=== PATIENT | female | born 1950 | race Caucasian/White ===

== ENCOUNTER 2025-02-04 22:26 | Outpatient (CLI) | payer MEDICARE, SELFPAY | END 2025-02-04 22:27 | disposition home or self-care (01) | LOC: AMB 02-07 10:15 | PROVIDERS: Visit Provider Family Medicine | DX: S79.911A Unspecified injury of right hip, initial encounter (principal); W19.XXXA Unspecified fall, initial encounter; Y92.009 Unspecified place in unspecified non-institutional (private) residence as the place of occurrence of the external cause | CPT/HCPCS: A0425; A0433 ==

== ENCOUNTER 2025-02-04 23:21 | Inpatient (IN) | payer MEDICARE, SELFPAY ==
--- NOTE | 2025-02-04 | CRLHL7_ITS ---
For Patients: As a result of the Cures Act, medical imaging exams and procedure reports are released immediately into your electronic medical record. You may view this report before your referring provider. If you have questions, please contact your health care provider. INDICATION: Cough, chest pain. TECHNIQUE: Chest 1 view. COMPARISON: None. FINDINGS: Cardiovascular and mediastinum: Cardiomediastinal silhouette is within normal limits. Lungs and pleural spaces: Hyperinflated lungs, likely reflecting COPD. No consolidation. No pleural effusions or pneumothorax. Bones and soft tissues: Old right 9th rib fracture. IMPRESSION: No evidence of acute pulmonary process. Dictated by Gino To MD @ 02/05/2025 12:17:49 AM (Electronically Signed)
[2025-02-04 23:26] VITALS: BP 112/73; PULSE 94; RESP 16; TEMP 36.6; O2SAT 92; BMI 22.0
--- NOTE | 2025-02-04 23:31 | CRLHL7_ITS ---
For Patients: As a result of the Cures Act, medical imaging exams and procedure reports are released immediately into your electronic medical record. You may view this report before your referring provider. If you have questions, please contact your health care provider. INDICATION: Fall, right hip pain. TECHNIQUE: Pelvis and right hip 3 views. COMPARISON: None. FINDINGS: Comminuted displaced and angulated fracture of the right femoral intertrochanteric region. No dislocation. Mild degenerative changes of the bilateral hips. Right hip soft tissue swelling. IMPRESSION: Comminuted displaced angulated right femoral intertrochanteric fracture. Dictated by Gino To MD @ 02/05/2025 12:19:12 AM (Electronically Signed)
[2025-02-05] VITALS (21 sets, daily range): BP systolic 101–154; BP diastolic 60–81; PULSE 94–103; RESP 14–41; TEMP 36.4–37.2; O2SAT 75–97; BMI 24.6
--- NOTE | 2025-02-05 00:05 | ED_ITS ---
HPI - General Adult General Chief complaint: Hip Injury/Pain Stated complaint: R hip pain Time Seen by Provider: 02/05/25 00:01 History of Present Illness HPI narrative: per ems - fall from standing around 2114, unknown how she fell. found her on the ground with c/o R hip pain . denies LOC or head injury, does state she is intoxicated. ems iv 20g R FA, gave 150 fentanyl and an ice pack. 75-year-old woman presenting to the emergency department via EMS with right hip pain. Apparently had a fall around 3 hours prior to my interview with her. The circumstances of the fall are initially unclear but she believes she tripped over her big dog. She says a big dog in a tiny apartment. And she admits that alcohol would have played a role as well. Did not hit her head. No neck or back pain. Does not believe she passed out. No abdominal pain. No new shortness of breath. I do inquire about her drinking. It would appear that this has become more of a problem. There are some days she does not drink. She has had shakes in the past. Past medical includes osteoporosis, psoriasis, sub corneal dermatitis, COPD, tobacco dependence, alcohol abuse Surgical history includes , tubal ligation and subsequent reversal and salpingectomy, orif on right ankle Medications include calcium plus D, desonide cream, dupilumab, lorazepam, tiotropium-olodaterol Related Data Home Medications ?Medication ?Instructions ?Recorded ?Confirmed No Known Home Medications 02/05/2501/24 Allergies Allergy/AdvReac Type Severity Reaction Status Date / Time ragweed pollen Allergy Intermediate Rash, Verified 02/05/25 00:45 Dyspnea azithromycin Allergy Mild Intolerance Verified 02/05/25 00:45 ciprofloxacin Allergy Mild Shortness Verified 02/05/25 00:45 of Breath latex Allergy Mild Rash Verified 02/05/25 00:45 Sulfa (Sulfonamide Allergy Mild Shortness Verified 02/05/25 00:45 Antibiotics) of Breath Fish Containing Products AdvReac Mild Nausea/Vomi Verified 02/05/25 00:45 ting pistachio nut AdvReac Mild GI Upset Verified 02/05/25 00:45 shellfish derived AdvReac Mild GI Upset Verified 02/05/25 00:45 Review of Systems Status of ROS: Reports: 6 or more systems reviewed and unremarkable except as noted in History and below [facility] Medical History Pulmonary emphysema ?J43.9 - Emphysema, unspecified (ICD-10) Cellulitis of skin ?L03.90 - Cellulitis, unspecified (ICD-10) Smoker ?F17.200 - Nicotine dependence, unspecified, uncomplicated (ICD-10) 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 - Subcorneal pustular dermatitis (ICD-10) Psoriasis ?L40.9 - Psoriasis, unspecified (ICD-10) Osteoporosis ?M81.0 - Age-related osteoporosis without current pathological fracture (ICD- 10) Surgical History History of tubal ligation ?Z98.51 - Tubal ligation status (ICD-10) Status post ORIF of fracture of ankle ?Z98.890 - Other specified postprocedural states (ICD-10) ?Z87.81 - Personal history of (healed) traumatic fracture (ICD-10) History of section ?Z98.891 - History of uterine scar from previous surgery (ICD-10) Social History Smoking Status: Former smoker How often do you have a drink containing alcohol: 4 or more times a week How many standard drinks containing alcohol do you have on a typical day: 5 or 6 How often do you have six or more drinks on one occasion: Weekly AUDIT-C Alcohol total score: 9 Non-prescribed substance use: denies use Exam Narrative: Exam Narrative: Pleasant. Upset. Eyes are little injected. Pupils are 3 mm and equal and appropriately reactive. She is not slurring her words. Does appear a little intoxicated however. Head is atraumatic. Neck is supple nontender. Back nontender. She is breathing easily. Heart in elevated rate but regular rhythm. Extremities well perfused without edema. Exquisite tenderness about the right hip limiting any movement. Abdominal pain to palpation. Const: Vital Signs, click to edit/add: Vital Signs - 24 hr 02/04/25 23:26 02/05/25 00:11 02/05/25 01:07 Temperature 97.8 F Pulse Rate [Pulse Oximeter] 94 Respiratory Rate 16 Blood Pressure [Ri ght Upper Arm] 112/73 Pulse Oximetry 92 93 75 L Oxygen Delivery Me thod Room Air Room Air Oxygen Flow Rate 02/05/25 01:07 02/05/25 01:08 Temperature Pulse Rate [Pulse Oximeter] Respiratory Rate Blood Pressure [Ri ght Upper Arm] Pulse Oximetry 97 90 Oxygen Delivery Me thod Nasal Cannula Nasal Cannula Oxygen Flow Rate 2 Documenting provider has reviewed patient's vital signs: yes Course Vital Signs Vital signs: Initial Vital Signs Temperature 97.8 F 02/04/25 23:26 Temperature Source Temporal Artery Scan 02/04/25 23:26 Pulse Rate 94 02/04/25 23:26 Respiratory Rate 16 02/04/25 23:26 Blood Pressure 112/73 02/04/25 23:26 Blood Pressure Mean 86 02/04/25 23:26 Blood Pressure Position Sitting 02/04/25 23:26 Pulse Oximetry 92 02/04/25 23:26 Oxygen Delivery Method Room Air 02/04/25 23:26 Vital Signs Temperature 97.8 F 02/04/25 23:26 Pulse Rate 94 02/04/25 23:26 Respiratory Rate 16 02/04/25 23:26 Blood Pressure 112/73 02/04/25 23:26 Pulse Oximetry 92 02/04/25 23:26 Oxygen Delivery Method Room Air 02/04/25 23:26 Temperature 97.8 F 02/04/25 23:26 Pulse Rate 94 02/04/25 23:26 Respiratory Rate 16 02/04/25 23:26 Blood Pressure 112/73 02/04/25 23:26 Pulse Oximetry 90 02/05/25 01:08 Oxygen Delivery Method Nasal Cannula 02/05/25 01:08 Oxygen Flow Rate 2 02/05/25 01:07 Medications Administered Medications: Generic Name Dose Route Start Last Admin Trade Name Freq PRN Reason Stop Dose Admin Hydromorphone HCl 0.5 mg 02/05/25 00:29 02/05/25 00:38 Hydromorphone 0.5 Mg/0.5 Ml Inj IVP 02/05/25 00:30 0.5 mg ONCE ONE Administration Sodium Chloride 500 mls @ 500 mls/hr 02/05/25 00:29 02/05/25 00:38 0.9 % Sodium Chloride 500 Ml IV 02/05/25 01:28 500 mls/hr .Q1H ONE Administration Medical Decision Making MDM Narrative Medical decision making narrative: Suspicion for hip fracture. She did receive fentanyl by EMS. I have ordered for 0.5 mg of Dilaudid yet as she is still in pain. Three-view of right hip/pelvis independently reviewed by me shows an intertrochanteric comminuted fracture of the right hip. Some displacement. One-view chest x-ray looks hyperinflated. Alcohol level does return at 0.27. I do call to Orthopedics and they would anticipate surgery in the morning pending clearing of alcohol. Subsequently spoke to our covering hospitalist who is accepting for admission. Giving another dose of Dilaudid. Medical Records Medical records reviewed: Yes I reviewed the patient's medical records Lab Data Lab results reviewed: Yes I reviewed the patient's lab results Labs: Lab Results 02/04/25 Range/Units 00:03 WBC 6.66 (4.50-11.00) K/uL RBC 4.61 (4.00-5.20) m/uL Hgb 14.3 (12.0-16.0) gm/dL Hct 43.1 (33.0-51.0) % MCV 94 (80-100) fL MCH 31 (26-34) pg MCHC 33 (32-36) gm/dL RDW Coeff of Lisa 13.9 (11.5-15.5) % Plt Count 285 (140-440) K/uL Neut % (Auto) 70.5 (42.0-72.0) % Lymph % (Auto) 20.0 (20-44) % [place] % (Auto) 7.5 (0.0-11.0) % Eos % (Auto) 0.6 (0.0-7.0) % Baso % (Auto) 0.8 (0.0-3.0) % Neut # (Auto) 4.70 (1.7-7.0) K/uL Lymph # (Auto) 1.33 (0.90-2.90) K/uL [place] # (Auto) 0.50 (0.00-0.90) K/UL Eos # (Auto) 0.04 (0.00-0.50) K/uL Baso # (Auto) 0.05 (0.00-0.30) K/uL Abs Immat Gran (auto) 0.04 (0.00-0.30) K/uL Imm/Tot Granulo (auto) 0.6 % Sodium 135 (135-149) mmol/L Potassium 4.3 (3.6-5.1) mmol/L Chloride 98 (96-114) mmol/L Carbon Dioxide 27 (20-32) mmol/L Anion Gap 10 (7-15) mEq/L BUN 10 (7-30) mg/dL Creatinine 0.7 (0.5-1.5) mg/dL Estimated Creat Clear 50.54 Estimated GFR 91 ml/min Glucose 124 H (60-115) mg/dL Calcium 9.0 (8.4-10.6) mg/dL Ethyl Alcohol 0.27 H (0.01-0.03) % ECG Data Attestation: I personally reviewed and interpreted this ECG as follows: (Normal sinus rhythm. Evolving right bundle. Rate of 93) Discharge Plan Discharge Clinical Impression: Hip fracture, Alcohol intoxication Patient Disposition: Admitted As Inpatient Condition: Stable
--- OUTSIDE RECORDS SUMMARY | 2025-02-05 00:10 | XMS_ITS | Clinical Summary ---
Author Organization [facility] Address [address] [place] [id number] Care Team Providers Care Tour Counselor Name Role Phone Salvador Dawson MD Unavailable [phone] [facility], [facility] Primary Care Provider + Allergies Active Allergy Reactions Criticality Noted Date Comments Azithromycin 02/21/2020 Latex Rash Low 10/30/2016 Eats away at skin Eats away at skin Sulfa Antibiotics Shortness Of Breath High 9 Rapid heart beat Medications tiotropium-oloda terol (STIOLTO RESPIMAT) 2.5-2.5 MCG/ACT AERS Inhale 2 puffs into the lungs daily 0 Active albuterol (PROAIR HFA/PROVENTIL HFA/VENTOLIN HFA) 108 (90 Base) MCG/ACT inhaler Inhale 1-2 puffs into the lungs every 4 hours as needed for wheezing or shortness of breath / dyspnea 9 Active acetaminophen (TYLENOL) 325 MG tabletIndication s:Low back pain, unspecified back pain laterality, unspecified chronicity, unspecified whether sciatica present Take 2 tablets (650 mg) by mouth every 6 hours 0 Active cyclobenzaprine (FLEXERIL) 10 MG tabletIndication s:Low back pain, unspecified back pain laterality, unspecified chronicity, unspecified whether sciatica present Take 1 tablet (10 mg) by mouth every 8 hours as needed for muscle spasms 20 tablet 0 Active ibuprofen (ADVIL/MOTRIN) 200 MG tabletIndication s:Low back pain, unspecified back pain laterality, unspecified chronicity, unspecified whether sciatica present Take 2 tablets (400 mg) by mouth every 8 hours as needed for moderate pain For no more than 1 week. Do not use with alcohol 0 Active oxyCODONE (ROXICODONE) 5 MG tabletIndication s:Low back pain, unspecified back pain laterality, unspecified chronicity, unspecified whether sciatica present Take 1 tablet (5 mg) by mouth every 6 hours as needed for moderate to severe pain 15 tablet 0 Active polyethylene glycol (MIRALAX) 17 g packetIndication s:Constipation, unspecified constipation type Take 17 g by mouth daily 30 packet 1 0 Active senna-docusate (SENOKOT-S/PERIC OLACE) 8.6-50 MG tabletIndication s:Constipation, unspecified constipation type Take 1 tablet by mouth 2 times daily as needed for constipation 60 tablet 0 Active Active Problems Problem Noted Date Diagnosed Date Back pain 02/21/2020 Resolved Problems Problem Noted Date Diagnosed Date Resolved Date Lumbago 03/31/2009 06/12/2009 Cervicalgia 03/31/2009 06/12/2009 Aftercare for healing trauma tic fracture of upper arm 03/31/2009 06/12/2009 Aftercare for healing trauma tic fracture of vertebrae 03/31/2009 06/12/2009 Social History Tobacco Use Types Packs/Day Years Used Date Smoking Tobacco: Never Assessed Adolescent Education Answer Date Record ed Getting School Help Needed Not on file 03/02 Comments Unknown Sex and Gender Information Value Date Recorded Sex Assigned at Not on file Legal Sex Female 3:19 AM [employer] Gender Identity Not on file Sexual Orientation Not on file Last Filed Vital Signs Vital Sign Reading Time Taken Comments Blood Pressure 126/69 02/22/2020 11:32 AM CDT Pulse 84 02/22/2020 11:32 AM CDT Temperature 35.8 C (96.5 F) 02/22/2020 11:32 AM CDT Respiratory Rate 16 02/22/2020 11:32 AM CDT Oxygen Saturation 94% 02/22/2020 11:32 AM CDT Inhaled Oxygen Concentration - - Weight 64.1 kg (141 lb 6.4 oz) 02/21/2020 3:54 P M CDT Height 167.6 cm (5' 6) 02/21/2020 3:54 PM CDT Body Mass Index 22.82 02/21/2020 3:54 PM CDT Plan of Treatment Not on file Insurance [employer] MED[employer]ARE Advance Directives For more information, please contact: [phone] * Full Code (Latest Code Status on File) Date Activated Date Inactivated Comments 02/21/2020 4:02 PM 02/22/2020 3:22 PM All basic an d advanced life-sustaining interventions are performed as appropriate Question Answer Comments Code status determined by: Discussion with selame nt/ legal decision maker Care Teams Tour Counselor Relationship Specialty Start Date End Date [facility], [facility] [address] [place] [id number] PCP - General 02/21/20 Salvador Dawson MD [address] [place] [id number] Dermapathology 06/05/18
--- OUTSIDE RECORDS SUMMARY | 2025-02-05 00:10 | XMS_ITS | Clinical Summary ---
Author Organization [facility] Address [address] [place] [id number] Care Team Providers Care Technical Business Systems Analyst Name Role Phone Clint Brito Primary Care Provider [phone] Allergies Active Allergy Reactions Criticality Noted Date Comments Azithromycin Intolerance-Can't Take 08/12/2008 nausea Ciprofloxacin Shortness Of Breath,Flushing 01/06/2018 Fish Containing Products Nausea And Vomiting Latex Rash 10/30/2016 Eats away at skin Pistachio Nut GI Upset 02/11/2019 Ragweed Pollen Cough,Itching,Rash,D yspnea,Tinnitus,Whee zing 02/20/2021 Shellfish Derived GI Upset 02/11/2019 Sulfa (Sulfonamide Antibiotics) Shortness Of Breath 08/02/2019 Medications medication order composerIndicati ons:Psoriasis Talconex .005 % lotion. Apply to scalp for psoriasis as needed 1 Container 11/28/19 18 Active Calcium-Cholecal ciferol, D3, 500 mg(1,250mg) -400 unit chewable tablet Chew 2 Tablets by mouth. Active LORazepam (ATIVAN) 0.5 mg tabIndications:S tress Take 0.5-1 Tablets (0.25-0.5 mg) by mouth 2 times daily if needed for Anxiety. 15 Tablet 02/21/20 21 Active tiotropium-oloda teroL (Stiolto Respimat) 2.5-2.5 mcg/actuation inhaler Inhale 2 Puffs by mouth once daily. 12/25/19 22 Active dupilumab (Dupixent Pen) 300 mg/2 mL subcutaneous PENIndications:A topic dermatitis, unspecified type Loading dose. Inject the contents of 2 pens (600 mg total) subcutaneously each at separate injection sites on day 1. Do NOT shake. Each pen contains 300 mg. 2 Each 01/14/20 Active dupilumab (Dupixent Pen) 300 mg/2 mL subcutaneous PENIndications:A topic dermatitis, unspecified type Maintenance dose. Inject the contents of 1 pen (300 mg) subcutaneous every 2 weeks starting on day 15. Do NOT shake. Each pen contains 300 mg. 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 Osteoporosis, unspecified 10/17/2006 Resolved Problems Problem Noted Date Diagnosed Date Resolved Date Alcoholic intoxication without complication 02/23/2021 03/13/2023 Encounters Date Type Department Care Team Description 01/13/2025 2:40 PM CDT Office Visit [facility] [address] [address] Ernestine Morales MD Derm Problem 01/13/2025 Travel from Last 3 Months Immunizations Immunization Administration Dates Next Due COVID-19 vaccine (Moderna 100mcg/0.5mL) LY NOBLE 09/05/2020,08/08/2020 Family History Medical History Relation Name Comments Genetic Other FATHER - HEART DISEASE~OSTEOPOROSIS - MOTHER Relation Name Status Comments Father Mother osteoporosis Other Social History Tobacco Use Types Packs/Day Years Used Date Smoking Tobacco: Former Cigarettes 0.5 55 Q uit: 06/26/2024 Smokeless Tobacco: Never Tobacco Cessation:Counseling Given: Yes Comments:10-15 cigarettes per day Alcohol Use Standard Drinks/Week Comments Never 0 (1 standard drink = 0.6 oz pur e alcohol) 3 drinks daily PHQ-2 Answer Date Recorded PHQ-2 TOTAL SCORE 6 02/20/2021 Social Connections Answer Date Recorded Do you often feel lonely or isolated from those around you? 0 06/04/2024 Financial Resource Strain Answer Date R ecorded Difficulty of Paying Living Expenses 3 06/04/2024 Difficulty of Paying Living Expenses Not on file 06/04/2024 Food Insecurity Answer Date Recorded Do you worry your food will run out before you are able to buy more? 1 06/04/2024 Transportation Needs Answer Date Record ed Does lack of transportation keep you from medica l appointments? 1 06/04/2024 Does lack of transportation keep you from work, meetings or getting things that you need? 1 06/04/2024 Housing Stability Answer Date Recorded What is your housing situation today? 1 06/04/2024 Utilities Answer Date Recorded Do you have trouble paying f or utilities (for example, heat, electricity, water, phone)? 1 06/04/2024 Comments No Sex and Gender Information Value Date Recorded Sex Assigned at Not on file Legal Sex Female 6:10 AM DRUM STENCILER Gender Identity Not on file Sexual Orientation Not on file Obstetrics History Para Term AB IAB SAB Ectopic Multiple Livin g Live Births 5 5 Date Outcome GA Total Labor Labor/2nd/3rd Weight Sex Type Anes PTL Deborah A1 A5 Name Clin Last Filed Vital Signs Vital Sign Reading Time Taken Comments Blood Pressure 110/72 07/08/2024 3:34 PM DRUM STENCILER Pulse 92 07/08/2024 3:34 PM DRUM STENCILER Temperature 36.9 C (98.5 F) 02/20/2021 3:14 PM CDT Respiratory Rate - - Oxygen Saturation 95% 06/04/2024 1:23 PM DRUM STENCILER Inhaled Oxygen Concentration - - Weight 65.5 kg (144 lb 6.4 oz) 07/08/2024 3:34 P M DRUM STENCILER Height 167.6 cm (5' 6) 07/08/2024 3:34 PM DRUM STENCILER Body Mass Index 23.31 07/08/2024 3:34 PM DRUM STENCILER Plan of Treatment Upcoming Encounters Date Type Department Care Team (Late st Contact Info) Description 04/14/2025 3:00 PM DRUM STENCILER Office Visit [facility] [address] [place] [address] Ernestine Morales MD [address] [facility] [address] [place] [address] Health Maintenance Due Date Last Done Comments Tetanus booster 01/17/1963 Pneumococcal series for age 50+ (1 of 2 - PCV) 01/17/1971 Zoster (shingles) series for age 50+ (1 of 2) 01/17/[address] (for lung CA) age 50-80 01/17/2002 Mammogram for age 45-75 08/08/2010 08/08/2009 RSV vaccine for adults or (1 - Risk 60-74 years 1-dose series) 2012 Medicare Wellness for age 65+ 01/17/2017 COVID-19 vaccine series (3 - Moderna risk series) 10/03/2020 09/05/2020, 08/08/2020 Fecal testing sDNA-FIT (Cologuard) for age 45-75 08/27/2021 08/27/2018, 08/27/2018 (Verified in Care Everywhere or Patient Record) Depression screening for age 12+ 02/22/2022 02/22/2021, 02/22/2021, 02/20/2021, Additional history exists Lipids for age 45-75 09/19/2023 09/18/2018 Influenza Vaccine (#1) 2025 BMI (ht and wt on same day) for age 18+ 07/08/2025 07/08/2024, 08/22/2022, 03/01/2022, Additional history exists DEXA/DXA scan for age 65+ Completed 04/28/2018, Hepatitis C screening for age 18-79 Addressed 08/24/2018 (Verified in Care Everywhere or Patient Record) Overridden with the intention of not completing the topic Hepatitis B series for 19+ Aged Out N o longer eligible based on patient's age to complete this topic Procedures Procedure Name Priority Date/Time Associated Diagnosis Comments LIPID PANEL Routine 09/18/2018 10:09 AM CDT Hyperlipemia XR DXA BONE DENSITY 2 SITES AXIAL Routine 04/28/2018 2:30 PM DRUM STENCILER Osteoporosis, unspecified osteoporosis type, unspecified pathological fracture presence XR MAMMO BILAT SCREEN FFDM (IA) Routine 08/08/2009 1:40 PM CDT Other Screening Mammogram from Last 3 Months or Most Recently Relevant to Health Maintenance Results * (ABNORMAL) LIPID PANEL (09/18/2018 10:09 AM CDT) [facility] CHOLESTEROL,TOTAL 249(H) 100 - 199 mg/dL 09/18/2018 2:38 PM CDT [facility] TRIGLYCERIDES 85 <150 mg/dL 09/18/2018 2:38 PM CDT [facility] HDL CHOLESTEROL 80 >40 mg/dL 9 2:38 PM CDT [facility] NON-HDL CHOLESTEROL 169(H) <145 mg/dl 09/18/2018 2:38 PM CDT [facility] CHOL/HDL RATIO 3.11 <4.50 09/18/2018 2:38 PM CDT [facility] LDL CHOLESTEROL 152(H) <=130 mg/dL 09/18/2018 2:38 PM CDT [facility] PROVIDER ORDERED STATUS RANDOM 09/18/2018 2:38 PM CDT [facility] Blood BLOOD SPECIMEN / Unknown Venipuncture / Unknown 09/18/2018 10:09 AM CDT 09/18/2018 10:09 AM CDT us Clint BOLANOS CHEMISTRY Final Resul t [facility] [address] [place] [address], * (ABNORMAL) XR DXA BONE DENSITY 2 SITES AXIAL (04/28/2018 2:30 PM DRUM STENCILER) Anatomical Region Laterality Modality Spine, HIPS, HIPL, HIPR Other Narrative 04/29/2018 3:46 PM DRUM STENCILER Please see scanned document for results of this study. Zoraida Greco NP DEXA F inal Result * XR MAMMO BILAT SCREEN FFDM (08/08/2009 1:40 PM CDT) Anatomical Region Laterality Modality BREASTS, Breast Left, Breast Right Bilateral Mammography 08/08/2009 1:40 PM CDT Impressions 08/09/2009 12:16 PM CDT There is no radiographic evidence for malignancy. Recommend annual mammograms. A lay language report of this examination will be provided to the patient. MAMMOGRAM ASSESSMENT: ACR 1 Negative Narrative 08/09/2009 12:16 PM CDT XR MAMMO BILAT SCREEN FFDM [G0202.0] CLINICAL HISTORY: This is an asymptomatic 59 y.o. patient. INDICATION FOR EXAM: Mammogram Screening. TECHNIQUE: CC & MLO views were obtained. This digital study was evaluated with the assistance of Computer-Aided Detection. COMPARISON FILM: Yes 12/15/03 [facility] FINDINGS: Mammographically, the breast tissue has scattered fibroglandular densities (approximately 25% - 50% glandular). There are no dominant masses, suspicious micro calcifications or areas of architectural distortion. Procedure Note Bora Bermeo, DO - 08/09/2009 XR MAMMO BILAT SCREEN FFDM [G0202.0] CLINICAL HISTORY: This is an asymptomatic 59 y.o. patient. INDICATION FOR EXAM: Mammogram Screening. TECHNIQUE: CC & MLO views were obtained. This digital study was evaluatedwith the assistance of Computer-Aided Detection. COMPARISON FILM: Yes 12/15/03 [facility] FINDINGS: Mammographically, the breast tissue has scatteredfibroglandular densities (approximately 25% - 50% glandular). There areno dominant masses, suspicious micro calcifications or areas ofarchitectural distortion. IMPRESSION: There is no radiographic evidence for malignancy. Recommendannual mammograms. A lay language report of this examination will be provided to the patient. MAMMOGRAM ASSESSMENT: ACR 1 Negative Zoraida Greco NP MAMMO F inal Result from Last 3 Months or Most Recently Relevant to Health Maintenance Insurance [facility] MEDICARE ADVANTAGE MR Care Teams Technical Business Systems Analyst Relationship Specialty [place] [address] [place] [address] PCP - General Family Practice 06/18/18
--- OUTSIDE RECORDS SUMMARY | 2025-02-05 00:11 | XMS_ITS | Encounter Summary ---
Author Organization [facility] Address [address] [place] [id number] Care Team Providers Care Switchboard And Control Room Operator Name Role Phone Unavailable Primary Care Provider Unavailabl e Reason for Visit * Reason Comments Med Refill Encounter Details Date Type Department Care Team ([facility] st Contact Info) Description 12/23/2024 Refill Division of Pulmonary Medicine in [place], [place] [address] [place] [phone] Yara Carvajal M.D. [address] [place] [phone] Med Refill Social History Tobacco Use Types Packs/Day Years Used Date Smoking Tobacco: Some Days Cigarettes 0.6 62.7 Started: 1960 Smokeless Tobacco: Never Alcohol Use Standard Drinks/Week Comments Yes 0 (1 standard drink = 0.6 oz pur e alcohol) [facility] Utilities Answer Date Recorded In the past 12 months has e Open[employer], gas, oil, or water eMeter threatened to shut off services in your home? No 12/23/2023 Hunger Vital Sign Answer Date Recorded Within the past 12 months, y ou worried that your food would run out before you got the money to buy more. Never true 12/23/19 24 Within the past 12 months, t he food you bought just didn't last and you didn't have money to get more. Never true 12/23/2023 PRAPARE - Transportation Answer Date Re corded In the past 12 months, has l ack of transportation kept you from medical appointments or from getting medications? No 11/25 In the past 12 months, has l ack of transportation kept you from meetings, work, or from getting things needed for daily living? No 12/23/2023 Housing Stability Answer Date Recorded What is your living situation today? I have a berta place to live 12/23/2023 Education Answer Date Recorded What is the highest level of school you have completed or the highest degree you have received? 12th grade 02/09/2019 Comments Unknown Sex and Gender Information Value Date Recorded Sex Assigned at Female 12/23/2023 11:29 PM CDT Legal Sex Female 8:04 AM DIE STORAGE CLERK Gender Identity Female 07/02/2018 11:11 AM DIE STORAGE CLERK Sexual Orientation Straight 07/02/2018 11 :11 AM DIE STORAGE CLERK documented as of this encounter Plan of Treatment Not on file documented as of this encounter Visit Diagnoses Diagnosis Chronic Obstructive Pulmonary Disease (HCC) documented in this encounter Additional Health Concerns Assessment Noted Time PHQ-9 Depression Total Score: 12 08/20/2 019 1:07 PM CDT documented as of this encounter
--- OUTSIDE RECORDS SUMMARY | 2025-02-05 00:11 | XMS_ITS | Encounter Summary ---
Author Organization [facility] Address [address] [place] [address] Care Team Providers Care Database Coordinator Name Role Phone Unavailable Primary Care Provider Unavailabl e Encounter Details Date Type Department Care Team (Late st Contact Info) Description 10/24/2023 Orders Only Division of Pulmonary Medicine in [place], [place] [address] [place] [phone] [facility], Provider, Chronic Obstructive Pulmonary Disease (HCC) Social History Tobacco Use Types Packs/Day Years Used Date Smoking Tobacco: Some Days Cigarettes 0.6 50 Smokeless Tobacco: Never Alcohol Use Standard Drinks/Week Comments Yes 0 (1 standard drink = 0.6 oz pur e alcohol) Hunger Vital Sign Answer Date Recorded Within the past 12 months, y ou worried that your food would run out before you got the money to buy more. Never true 11/29/19 21 Within the past 12 months, t he food you bought just didn't last and you didn't have money to get more. Never true 11/28/2020 PRAPARE - Transportation Answer Date Re corded In the past 12 months, has l ack of transportation kept you from medical appointments or from getting medications? No 10/2020 In the past 12 months, has l ack of transportation kept you from meetings, work, or from getting things needed for daily living? No 11/28/2020 Housing Stability Vital Sign Answer Maurizio e Recorded In the last 12 months, was t here a time when you were not able to pay the mortgage or rent on time? No 11/28/2020 In the last 12 months, how many places have you lived? 1 11/28/2020 In the last 12 months, was t here a time when you did not have a steady place to sleep or slept in a usp (including now)? No 11/28/2020 Education Answer Date Recorded What is the highest level of school you have completed or the highest degree you have received? 12th grade 02/09/2019 Comments Unknown Sex and Gender Information Value Date Recorded Sex Assigned at Female 12/23/2023 11:29 PM CDT Legal Sex Female 8:04 AM ENGAGEMENT DIRECTOR Gender Identity Female 07/02/2018 11:11 AM ENGAGEMENT DIRECTOR Sexual Orientation Straight 07/02/2018 11 :11 AM ENGAGEMENT DIRECTOR documented as of this encounter Plan of Treatment Not on file documented as of this encounter Visit Diagnoses Diagnosis Chronic Obstructive Pulmonary Disease (HCC) documented in this encounter Additional Health Concerns Assessment Noted Time PHQ-9 Depression Total Score: 12 08/20/ 019 1:07 PM CDT documented as of this encounter
--- OUTSIDE RECORDS SUMMARY | 2025-02-05 00:11 | XMS_ITS | Encounter Summary ---
Author Organization [facility] Address [address] [place] [id number] Care Team Providers Care Managing Cognitive Engineer Name Role Phone Unavailable Primary Care Provider Unavailabl e Reason for Referral * MRI/CAT/PET Scan (Routine) - Closed Specialty Diagnoses / Procedures Referred By Contac t Referred To Contact Radiology Diagnoses Chronic Obstructive Pulmonary Disease (HCC) Procedures CT Chest without IV Contrast Yara Carvajal M.D. [address] [place] [phone] Phone: tel: fax: [facility] Referral ID Status Reason Start Date Expiration Date Visits Re quested Visits Authorized [id number] Closed 10/24/2023 10/23/2024 1 1 * Outpatient (Routine) - Closed Specialty Diagnoses / Procedures Referred By Contac t Referred To Contact Diagnoses Chronic Obstructive Pulmonary Disease (HCC) Procedures Six Minute Walk Yara Carvajal M.D. [address] [place] [phone] Phone: tel: fax: [facility] Referral ID Status Reason Start Date Expiration Date Visits Re quested Visits Authorized [id number] Closed 10/24/2023 10/23/2024 1 1 Encounter Details Date Type Department Care Team (Late st Contact Info) Description 10/24/2023 Orders Only Division of Pulmonary Medicine in [place], [place] [address] [place] [phone] [facility], Provider, Chronic Obstructive Pulmonary Disease (HCC) [...] place to sleep or slept in a senior care (including now)? No 11/28/2020 Education Answer Date Recorded What is the highest level of school you have completed or the highest degree you have received? 12th grade 02/09/2019 Comments Unknown Sex and Gender Information Value Date Recorded Sex Assigned at Female 12/23/2023 11:29 PM CDT Legal Sex Female 8:04 AM SQUEEGEE TEND[employer] Gender Identity Female 07/02/2018 11:11 AM SQUEEGEE TENDER Sexual Orientation Straight 07/02/2018 11 :11 AM SQUEEGEE TENDER documented as of this encounter Plan of Treatment Not on file documented as of this encounter Results * CT Chest without IV Contrast (12/24/2023 11:26 AM CDT) Anatomical Region Laterality Modality Chest, Thoracic RST LOS, Tho racic ARZ LOS, Thoracic FLA LOS N/A Computed Tomography, Compute d Tomography Impressions 12/24/2023 11:47 AM CDT New probable nodular infectious/inflammatory infiltrates in the right upper lobe and left lung base. However the nodules are technically indeterminant and short interval follow-up could be considered to ensure stability or resolution. Narrative 12/24/2023 11:47 AM CDT EXAM: CT CHEST WITHOUT IV CONTRAST COMPARISON: Exams dating back to 09/23/2018 FINDINGS: Since 02/21/2020 the loosely clustered ill-defined nodules have developed in the posterior right upper lobe, most prominent near the major fissure (series 3 image 190). Similar clustered nodularity is new in the left lung base (images were [id number]). These are most likely infectious/inflammatory in nature but are technically indeterminant and short interval follow-up could be considered to ensure stability or resolution. Slight increased atelectasis or scarring both lower lungs. Additional tiny solid nodules in the lungs all remain stable and should be benign. Scarring and volume loss in the medial right middle lobe is stable. Emphysematous changes bilaterally with bilateral apical scarring. Bilateral bronchial wall thickening. No pleural effusions. No adenopathy in the chest. Benign-appearing calcifications in both breasts. Aortic and coronary artery calcification. Stable borderline dilatation of the ascending aorta. Compression fracture of the T3 vertebral body is stable. Slight increased compression of the T12 vertebral body. Osteopenia. Mild degenerative changes in the spine. Old rib fractures. Marked degenerative changes in the left shoulder. Visualized abdomen is unremarkable. Procedure Note Greg Lopez M.D. - 12/24/2023 EXAM: CT CHEST WITHOUT IV CONTRAST COMPARISON: Exams dating back to 09/23/2018 FINDINGS: Since 02/21/2020 the loosely clustered ill-defined nodules have developedin the posterior right upper lobe, most prominent near the major fissure(series 3 image 190). Similar clustered nodularity is new in the left lungbase (images were [phone]). These are most likely infectious/inflammatory in nature but are technicallyindeterminant and short interval follow-up could be considered to ensurestability or resolution. Slight increased atelectasis or scarring bothlower lungs. Additional tiny solid nodules in the lungs all remain stable and should bebenign. Scarring and volume loss in the medial right middle lobe isstable. Emphysematous changes bilaterally with bilateral apical scarring.Bilateral bronchial wall thickening. No pleural effusions. No adenopathy in the chest. Benign-appearing calcifications in bothbreasts. Aortic and coronary artery calcification. Stable borderlinedilatation of the ascending aorta. Compression fracture of the T3 vertebral body is stable. Slight increasedcompression of the T12 vertebral body. Osteopenia. Mild degenerativechanges in the spine. Old rib fractures. Marked degenerative changes inthe left shoulder. Visualized abdomen is unremarkable. IMPRESSION: New probable nodular infectious/inflammatory infiltrates in the rightupper lobe and left lung base. However the nodules are technicallyindeterminant and short interval follow-up could be considered to ensurestability or resolution. us Yara Carvajal M.D. IM CT PROCEDURES Final Result * CBC with Differential, Blood (12/24/2023 9:18 AM CDT) Hemoglobin 14.3 11.6 - 15.0 g/dL 12/24/2023 10:33 AM CDT DTL Hematocrit 43.8 35.5 - 44.9 % 12/24/2023 10:33 AM CDT DTL Erythrocytes 4.78 3.92 - 5.13 x10(12)/L 12/24/2023 10:33 AM CDT DTL MCV 91.6 78.2 - 97.9 fL 12/24/2023 10:33 AM CDT DTL RBC Distrib Width 13.7 12.2 - 16.1 % 12/24/2023 10:33 AM CDT DTL Platelet Count 314 157 - 371 x10(9)/L 12/24/2023 10:33 AM CDT DTL Leukocytes 6.7 3.4 - 9.6 x10(9)/L 12/24/2023 10:33 AM CDT DTL Neutrophils 4.40 1.56 - 6.45 x10(9)/L 12/24/2023 10:33 AM CDT DHPM Lymphocytes 1.73 0.95 - 3.07 x10(9)/L 12/24/2023 10:33 AM CDT DTL Monocytes 0.45 0.26 - 0.81 x10(9)/L 12/24/2023 10:33 AM CDT DTL Eosinophils 0.08 0.03 - 0.48 x10(9)/L 12/24/2023 10:33 AM CDT DTL Basophils 0.06 0.01 - 0.08 x10(9)/L 12/24/2023 10:33 AM CDT DTL Blood (Blood, Venous) 12/24/2023 9:18 AM CDT 12/24/2023 9:52 AM CDT us Yara Carvajal M.D. LAB BLOOD ADD-ON Final Result [facility] [address] [place] [address], [facility] DTL [facility] [address] [place] [address] [facility] [address] [place] [address] * Comprehensive Metabolic Panel (12/24/2023 9:18 AM CDT) [facility] Potassium, S 4.3 3.6 - 5.2 mmol/L 12/24/2023 10:19 AM CDT DTL Sodium, S 142 135 - 145 mmol/L 12/24/2023 10:19 AM CDT DTL Chloride, S 102 98 - 107 mmol/L 12/24/2023 10:19 AM CDT DTL Bicarbonate, S 27 22 - 29 mmol/L 12/24/2023 10:19 AM CDT DTL Anion Gap 13 7 - 15 12/24/2023 10:19 AM CDT DTL BUN (Blood Urea Nitrogen), S 10 6 - 21 mg/dL 12/24/2023 10:19 AM CDT DTL Creatinine 0.77 0.59 - 1.04 mg/dL 12/24/2023 10:19 AM CDT DTL Estimated GFR (eGFR) 82 >=60 mL/min/BS A 12/24/2023 10:19 AM CDT DTL Comment: Estimated GFR calculated using the 2020 CKD_EPI creatinine equation. Calcium, Total, S 9.5 8.8 - 10.2 mg/dL 12/24/2023 10:19 AM CDT DTL Glucose, S 93 70 - 140 mg/dL 12/24/2023 10:19 AM CDT DTL Protein, Total, S 6.9 6.3 - 7.9 g/dL 12/24/2023 10:19 AM CDT DTL Albumin, S 4.4 3.5 - 5.0 g/dL 12/24/2023 10:19 AM CDT DTL Aspartate Aminotransferase (AST), S 27 8 - 43 U/L 12/24/2023 10:19 AM CDT DTL Alkaline Phosphatase, S 100 35 - 104 U/L 12/24/2023 10:19 AM CDT DTL Alanine Aminotransferase (ALT), S 21 7 - 45 U/L 12/24/2023 10:19 AM CDT DTL Bilirubin, Total, S 0.5 0.0 - 1.2 mg/dL 12/24/2023 10:19 AM CDT DTL Blood (Blood, Venous) 12/24/2023 9:18 AM CDT 12/24/2023 9:56 AM CDT us Yara Carvajal M.D. LAB BLOOD ADD-ON Final Result [facility] [address] [place] [address], [facility] [address] [place] [address] * Six Minute Walk (12/24/2023 8:58 AM CDT) Narrative Ric Pearson M.D. - 12/24/2023 5:03 PM CDT Distance: 1579 feet (481 meters) Baseline SpO2: 94% (room air) Post SpO2: 91% SpO2 damian: 88% Peak heart rate: 123 bpm Peak RPE: 3 Impression: At peak ambulation, heart rate was 75% of age adjusted predicted maximal heart rate to measure the effort. At end of exercise, the dyspnea scale was 3/10 RPE and 0/10 for leg fatigue. Interpretations: This is a satisfactory submaximal 6 minute walk study, for the indication of Chronic Obstructive Pulmonary Disease; there is no prior study. us Yara Carvajal M.D. CV STRESS PROCEDURES Fi nal Result * Pulmonary Function Tests (12/24/2023 8:01 AM CDT) PostFVC 2.72 L 12/24/2023 4:20 PM CDT [facility] SUITE PostFEV1 1.13 L 12/24/2023 4:20 PM CDT [facility] FEV1/FVC POST 41.53 % 12/24/2023 4:20 PM CDT [facility] FEF 25-75 % POST 0.32 L/s 12/24/2023 4:20 PM CDT [facility] PEF POST 3.89 L/s 12/24/2023 4:20 PM CDT [facility] PIF POST 3.55 L/s 12/24/2023 4:20 PM CDT [facility] Post FEF50/FIF50 13.78 % 12/24/2023 4:20 PM CDT [facility] FET POST 11.80 sec 12/24/2023 4:20 PM CDT [facility] DLCO 16.03 ml/(min*mm Hg) 12/24/2023 4:20 PM CDT [facility] DLCOc 15.62 ml/(min*mm Hg) 12/24/2023 4:20 PM CDT [facility] HB 14.30 g(Hb)/dL 12/24/2023 4:20 PM CDT [facility] VA 4.45 L 12/24/2023 4:20 PM CDT [facility] TLC 6.00 L 12/24/2023 4:20 PM CDT [facility] FRC Pre 4.67 L 12/24/2023 4:20 PM CDT [facility] RV 3.24 L 12/24/2023 4:20 PM CDT [facility] RV % TLC PRE 54.05 % 12/24/2023 4:20 PM CDT [facility] FVC 2.68 L 12/24/2023 4:20 PM CDT [facility] FEV1 1.10 L 12/24/2023 4:20 PM CDT [facility] FEV1/FVC 41.03 % 12/24/2023 4:20 PM CDT [facility] ELS77-87% 0.27 L/s 12/24/2023 4:20 PM CDT [facility] PEF PRE 4.08 L/s 12/24/2023 4:20 PM CDT [facility] PIF PRE 3.39 L/s 12/24/2023 4:20 PM CDT [facility] Pre FEF50/FIF50 10.15 % 12/24/2023 4:20 PM CDT [facility] FET PRE 14.02 sec 12/24/2023 4:20 PM CDT [facility] SUBSTANCE POST Albuterol 12/24/2023 4:20 PM CDT [facility] 12/24/2023 8:01 AM CDT Impressions [facility] - 12/24/2023 4:20 PM CDT Abnormal. Moderate obstruction. There is air trapping. There is no significant response to bronchodilator. Diffusing capacity is normal. Compared with 12/01/2020, there has been a reduction in baseline FEV1. Narrative Procedure Note Ric Pearson M.D. - 12/24/2023 IMPRESSION: Abnormal. Moderate obstruction. There is air trapping. There is nosignificant response to bronchodilator. Diffusing capacity is normal.Compared with 12/01/2020, there has been a reduction in baseline FEV1. Yara Carvajal M.D. PFT ORDERABLES Final R esult [facility] NA documented in this encounter Visit Diagnoses Diagnosis Chronic Obstructive Pulmonary Disease (HCC) Chronic Obstructive Pulmonary Disease (HCC) Chronic Obstructive Pulmonary Disease (HCC) documented in this encounter Additional Health Concerns Assessment Noted Time PHQ-9 Depression Total Score: 12 08/20/2 019 1:07 PM CDT documented as of this encounter
--- OUTSIDE RECORDS SUMMARY | 2025-02-05 00:11 | XMS_ITS | Clinical Summary ---
Author Organization [facility] Address [address] [place] [id number] Care Team Providers Care Attendance Officer Name Role Phone Unavailable Primary Care Provider Unavailabl e Source Comments Patient records contain information from all sites at [facility]. For routine questions regarding patient records, call [phone] during business hours, M-F 8:00 AM - 5:00 PM Central Time. Record requests for emergency care only can be directed to [phone] at any time.[facility] Allergies Active Allergy Reactions Criticality Noted Date Comments Azithromycin GI intolerance 08/12/2008 nausea Fish Containing Products Nausea And Vomiting 02/20/2021 Latex Rash Low 10/30/2016 Eats away at skin Eats away at skin Eats away at skin Pistachio Nut GI intolerance 02/11/2019 Ragweed Pollen Cough,Itching,Rash,S h ortness of breath (Reselect Reaction),Tinnitus,Wh eezing (Reselect Reaction) Shellfish Derived GI intolerance 02/11/2019 Sulfa (Sulfonamide Antibiotics) Shortness of breath (Reselect Reaction) High 08/20/2018 Rapid heart beat Rapid heart beat Medications multivitamin (multivitamin) tablet Take 1 tablet by mouth daily. Active clobetasoL (TEMOVATE) 0.05 % ointment Apply 1 application topically 2 times a day as needed FOR RASH for up to 14 days 60 g 2 0 Active Additional Information Patient not taking.Reported on 12/24/2023 albuterol 90 mcg/actuation inhalerIndicatio ns:Chronic Obstructive Pulmonary Disease (HCC) Inhale 1-2 puffs every 4 (four) hours as needed for wheezing or shortness of breath. 8 g 3 4 Active Stiolto Respimat 2.5-2.5 mcg/actuation inhalerIndicatio ns:Chronic Obstructive Pulmonary Disease (HCC) Inhale 2 puffs by mouth daily. 4 g 11 5 Active Active Problems Problem Noted Date Diagnosed Date Emphysema 09/23/2018 Shortness Of Breath 09/23/2018 Nicotine Dependence Cigarettes 09/23/2018 Osteoporosis 09/23/2018 Overview (09/23/2018): DIAGNOSIS: Bone density 2018 lumbar spine T-score -3.1, decline from previous in 2009 FRACTURE: 2009 L2 compression and C2 compression when she fell down a flight of stairs Ankle fracture when she caught her toe exiting a pole barn TREATMENT: Alendronate 70 mg once weekly around 2008 for 1 year, discontinued when she was concerned about side effects she read about. PERTINENT ADDITIONAL MEDICAL HISTORY: Mother had osteoporosis and sustained bilateral femur fractures. patient has no history of recent prednisone use for skin rash. She also has a current tobacco user and has 1-2 alcoholic drinks per day and occasional marijuana use. She does have 2 glasses of milk daily. Smoking Tobacco Use Personal History 08/21/2018 Encounters Date Type Department Care Team Description 12/23/2024 Refill Division of Pulmonary Medicine in [address] [id number] Yara Carvajal M.D. Med Refill from Last 3 Months Immunizations Immunization Administration Dates Next Due PCV13 08/20/2018(Deferred: Patient Ref used) Tdap 08/20/2018(Deferred: Patient Ref used) influenza trivalent high dose (HD)(PF) 9(Deferred: Patient Refused) Family History Medical History Relation Name Comments Alcohol abuse Brother 1 Aroldo Prostate cancer Brother 1 Aroldo Coronary artery disease Brother 2 Edison Osteoporosis Brother 3 Nader Other cancer Brother 3 Nader bladder cancer Skin cancer Brother 3 Nader Alcohol abuse Father Brennan Hypertension Father Brennan Sleep apnea Father Brennan Osteoporosis Mother Maegan Diabetes Paternal Grandfather Brennan Diabetes Paternal Grandmother Camila ADD Son 1 Aroldo Drug abuse Son 1 Aroldo Sleep apnea Son 2 Sean Relation Name Status Comments Brother 1 Aroldo Brother 2 Edison Brother 3 Nader Father Brennan Mother Maegan Paternal Grandfather Brennan Paternal Grandmother Camila Son 1 Aroldo Son 2 Sean Social History Tobacco Use Types Packs/Day Years Used Date Smoking Tobacco: Some Days Cigarettes 0.6 62.7 Started: 1960 Smokeless Tobacco: Never Tobacco Cessation:Ready to Q uit: Not Asked; Counseling Given: Not Answered Alcohol Use Standard Drinks/Week Comments Yes 0 (1 standard drink = 0.6 oz pur e alcohol) [facility] Utilities Answer Date Recorded In the past 12 months has e [employer], gas, oil, or water [employer] threatened to shut off services in your [...] your living situation today? [facility] 12/23/2023 Education Answer Date Recorded What is the highest level of school you have completed or the highest degree you have received? 12th grade 02/09/2019 Comments Unknown Sex and Gender Information Value Date Recorded Sex Assigned at Female 12/23/2023 11:29 PM CDT Legal Sex Female 8:04 AM ENGROSSER Gender Identity Female 07/02/2018 11:11 AM ENGROSSER Sexual Orientation Straight 07/02/2018 11 :11 AM ENGROSSER Last Filed Vital Signs Vital Sign Reading Time Taken Comments Blood Pressure 113/69 12/24/2023 1:12 PM CDT Pulse 104 12/24/2023 1:12 PM CDT Temperature 36.7 C (98.1 F) 12/24/2023 1:12 PM CDT Respiratory Rate - - Oxygen Saturation 94% 12/24/2023 1:12 PM CDT Inhaled Oxygen Concentration - - Weight 62.8 kg (138 lb 7.2 oz) 12/24/2023 1:12 P M CDT Height 167.3 cm (5' 5.87) 12/24/2023 1:12 PM CD T Body Mass Index 22.44 12/24/2023 1:12 PM CDT Plan of Treatment Health Maintenance Due Date Last Done Comments CT Colonography 1952 Colonoscopy 1952 FIT 1952 Tobacco Cessation counseling 1952 DTaP,Tdap,and Td Vaccines (1 - Tdap) 01/17/1971 Pneumococcal vaccine (50+ years) (1 of 2 - PCV) 01/17/1971 Zoster Vaccines (1 of 2) 01/17/2002 RSV vaccine - (32-36 weeks) or 60+ years (1 - Risk 60-74 years 1-dose series) 2012 Mammogram 08/25/2019 08/24/2018, 05/2010 (Performed elsewhere), 08/08/2009 Cologuard 08/27/2021 08/27/2018 Colorectal Cancer Screening 08/27/2021 Depression Screening (Annual PHQ-2) 05/26/2024 Fall Risk Screen (Annual) 05/26/2024 Lung Cancer Screening 12/23/2024 12/24/2023 , 02/21/2020, 02/11/2019, Additional history exists COVID-19 Vaccine ( season) 2025 09/05/2020, 08/08/2020 Influenza Vaccine (#1) 2025 Fasting Glucose for Diabetes Screening 07/08/2027 07/08/2024, 07/08/2024, 12/24/2023, Additional history exists Hepatitis B Screening Discontinued 08/24/2018 IPV Vaccines Aged Out No longer eligi ble based on patient's age to complete this topic Medical Devices Implanted Type Area Lumber Buyer Device Identifier Shelf Expiration Date Model / Serial / Lot Hardware E.G. Pins/Screws/R ods Implanted:Qty : 7 Hardware e.g. pins/screws/ rods Right: Ankle Procedures Procedure Name Priority Date/Time Associated Diagnosis Comments CT CHEST WITHOUT IV CONTRAST RAD - Routine (most inpatients and all outpatients) 12/24/2023 11:26 AM CDT Chronic Obstructive Pulmonary Disease (HCC) COMPREHENSIVE METABOLIC PANEL, S/P Routine 12/24/2023 9:18 AM CDT Chronic Obstructive Pulmonary Disease (HCC) COLOGUARD Routine 08/27/2018 10:30 AM CDT Screening Colon Cancer Average Risk BI BREAST SCREENING BILATERAL WITH TOMOSYNTHESIS RAD - Routine (most inpatients and all outpatients) 08/24/2018 4:02 PM CDT Screening Mammogram Breast Cancer HEPATITIS B SURFACE ANTIGEN Routine 08/24/2018 2:04 PM CDT Subcorneal Pustular Dermatitis from Last 3 Months or Most Recently Relevant to Health Maintenance Results * CT Chest without IV Contrast [...] ensurestability or resolution. us Yara Carvajal M.D. [facility] [place] [facility] PROCEDURES Final Result * Comprehensive Metabolic Panel (12/24/2023 9:18 AM CDT) Potassium, S 4.3 3.6 - 5.2 mmol/L [...] Carvajal M.D. LAB BLOOD ADD-ON Final Result [facility] [address] [place] [address], [place] DTL [facility] [address] [place] [address] * Cologuard (08/27/2018 10:30 AM CDT) Result Negative Not Applicable 09/05/2018 3:51 PM CDT MySupportAssistant Comment: A negative result indicates a low likelihood that a colorectal cancer (CRC) or an advanced adenoma (adenomatous polyps with more advanced pre-malignant features) is present. The chance that a person with a negative Cologuard test has a colorectal cancer is less than 1 in 1500 (negative predictive value >99.9%) or has an advanced adenoma is less than 5.3% (negative predictive value 94.7%). These data are based on a prospective cross-sectional screening study of 10,000 individuals at average risk for colorectal cancer who were screened with both Cologuard and colonoscopy. (Brant Govea. et al, N Engl J Med 2014;370(14):2097-8038)\X0A\ \X0A\COLOGUARD RE-SCREENING RECOMMENDATION: Periodic routine colorectal cancer screening is an important part of preventive healthcare for asymptomatic persons at average risk for colorectal cancer. Following a negative Cologuard result, the [place] [employer] Society and U.S. Multi-Society Task Force screening guidelines recommend a Cologuard re-screening interval of 3 years. \X0A\References: [place] [employer] Society (ACS). Colorectal cancer prevention and early detection. [place], [place]: [place] [employer]; [updated 2015Sep 16]. https://www.cancer.org/cancer/axuom-syjkhu-geizxk/detection- diagnosis-staging/acs-recommendations.html. Accessed January 23, 2018; Jose DK, Nat CR, Steph GuillenK, Colorectal Cancer Screening: Recommendations for Physicians and Patients from the U.S. Multi-Society Task Force on Colorectal Cancer Screening, Am J Gastroenterology 2017; 112:1322-0108. Test Type: Composite algorithmic analysis of stool DNA-biomarkers with hemoglobin immunoassay. Quantitative values of individual biomarkers are not reportable and are not associated with individual biomarker result reference ranges. Precautions and Limitations: Cologuard is intended for colorectal cancer screening of adults of either sex, 50 years or older, who are at typical average-risk for colorectal cancer. A negative Cologuard test result does not guarantee the absence of colorectal cancer or advanced adenoma (pre-cancer). Patients with a negative Cologuard test result should be advised to continue participating in a colorectal cancer screening program. Cologuard may produce a positive result, even though a colonoscopy may not find colorectal cancer or precancerous polyps. The performance of Cologuard has been established in a cross sectional study (i.e., single point in time). Performance has not been evaluated in adults who have been previously tested with Cologuard or in patients less than 50 years of age. Cologuard has been approved for use by the U.S. FDA. Cologuard performance data in a 10,000 patient pivotal study using colonoscopy as the reference method can be accessed at the following location: www.Intrallect.Smart Eye/results. Additional description of the Cologuard test process, warnings and precautions can be found at www.cologuardtest.com. Rx Only. Stool (Stool) 08/27/2018 10: 30 AM CDT 08/28/2018 2:06 PM CDT Cata Gomes M.D., M.H.P.E. LAB BODY FLUIDS AND STOOLS ORDERABLES Final Result Performing Organization Address City/State/[facility] Co de Phone Number MySupportAssistant [address] [place] [id number] * (ABNORMAL) BI Breast Screening Bilateral with Tomosynthesis (08/24/2018 4:02 PM CDT) Anatomical Region Laterality Modality Breast, Breast Imaging RST L OS, Breast Imaging ARZ LOS, Breast Imaging FLA LOS Bilateral Mammography 08/24/2018 4:07 PM CDT Addenda Addendum by Ericka Bosch M.D. on 08/31/2018 11:37 AM CDT ADDENDUM: AMENDMENT TO ADD COMPARISON EXAMS COMPARISON EXAMS: Prior mammogram from 08/08/2009. FINDINGS: When compared to prior exams, asymmetry in the right breast is stable, considered benign. However, asymmetry in the left central, slightly lower breast, only on the MLO view, not definitively seen on the prior. Hence recommend further evaluation of the left breast asymmetry. RECOMMENDATIONS: Additional Imaging ASSESSMENT: BI-RADS: 0 - Incomplete: Needs Additional Imaging Evaluation. Impressions 08/24/2018 4:13 PM CDT IMPRESSION: Incomplete. Comparison images needed. RECOMMENDATION: Comparison With Prior Exam(s) ASSESSMENT: BI-RADS: 0 - Incomplete: Need Prior Mammograms for Comparison. Narrative 08/24/2018 4:13 PM CDT EXAM: BI BREAST SCREENING BILATERAL WITH TOMOSYNTHESIS Current study was evaluated with a Computer Aided Detection (CAD) system. INDICATION: Screening mammogram. COMPARISON: Prior exam(s) were available and reviewed for comparison. DENSITY: b. There are scattered areas of fibroglandular density. FINDINGS: Asymmetry in the right inferior breast on the right MLO view. Asymmetry in the left central breast at posterior depth on the MLO view. Procedure Note Ericka Bosch M.D. - 08/24/2018 EXAM: BI BREAST SCREENING BILATERAL WITH TOMOSYNTHESIS Current study was evaluated with a Computer Aided Detection (CAD) system. INDICATION: Screening mammogram. COMPARISON: Prior exam(s) were available and reviewed for comparison. DENSITY: b. There are scattered areas of fibroglandular density. FINDINGS: Asymmetry in the right inferior breast on the right MLO view. Asymmetry in the left central breast at posterior depth on the MLO view. IMPRESSION: Incomplete. Comparison images needed. RECOMMENDATION: Comparison With Prior Exam(s) ASSESSMENT: BI-RADS: 0 - Incomplete: Need Prior Mammograms forComparison. Cata Gomes M.D., M.H.P.E. IMG BI PRO CEDURES Edited Result - Final * Hepatitis B Surface Antigen (08/24/2018 2:04 PM CDT) HBs Antigen, S Negative Negative 08/24/2018 9:34 PM CDT [facility] Blood (Blood, Venous) 08/24/2018 2:04 PM CDT 08/24/2018 4:52 PM CDT us Amber [place] M.D. LAB MICROBIOLOGY - BLOOD ORDERABLES Final Result [facility] [address] [place] [address] from Last 3 Months or Most Recently Relevant to Health Maintenance Insurance [facility]
[2025-02-05 00:12] LABS: Hematocrit 43.1 % (33.0-51.0); Hemoglobin* 14.3 gm/dL (12.0-16.0); Immature Granulocytes Abs Auto 0.04 K/uL (0.00-0.30); Immature Granulocytes Pct Auto 0.6 %; Lymphocytes Absolute Auto 1.33 K/uL (0.90-2.90); Mean Corpuscular HGB Conc 33 gm/dL (32-36); Mean Corpuscular Hemoglobin 31 pg (26-34); Mean Corpuscular Volume 94 fL (80-100); RDW Coefficient of Variation % 13.9 % (11.5-15.5); Red Blood Count 4.61 m/uL (4.00-5.20); White Blood Count* 6.66 K/uL (4.50-11.00)
[2025-02-05 00:16] LABS: Slide Review Reflex No
[2025-02-05 00:24] LABS: Chloride* 98 mmol/L (96-114); Sodium* 135 mmol/L (135-149)
[2025-02-05 00:25] LABS: Potassium* 4.3 mmol/L (3.6-5.1)
[2025-02-05 00:27] LABS: Blood Urea Nitrogen* 10 mg/dL (7-30); Creatinine* 0.7 mg/dL (0.5-1.5); Est. Creatinine Clearance* 50.54; Estimated Glomerular Filt Rate 91 ml/min
[2025-02-05 00:28] LABS: Anion Gap 10 mEq/L (7-15); Calcium* 9.0 mg/dL (8.4-10.6); Carbon Dioxide* 27 mmol/L (20-32); Ethanol* 0.27 % (0.01-0.03); Glucose* 124 mg/dL (60-115)
[2025-02-05] MEDS: 0.9 % SODIUM CHLORIDE 500 ML 500 ML IV (00:38)
--- NOTE | 2025-02-05 02:35 | W.PM.TELEH&P ---
Telehealth- H&P: HPI History of Present Illness Date Seen: 02/05/25 Chief complaint: R hip pain Narrative: Fidel Murrieta is seen as an Interactive Telehealth visit. Fidel Murrieta is a 75 year old male with no significant PMHx significant for COPD, Nicotine dependence quite in 06/2024, Psoriasis, Alcohol use disorder and nicotine dependence, who lives at home with presented to ED with c/o fall and right hip pain. Pt reports she has known h/o drinking, reports drinking3-4 drinks (kim) 4 times a week. She reports last night she had a few drinks prior to her episode of fall that brought her to Ed. She reports she tripped over her big dog and fell and developed right hip pain. She other nieto able to move all other extremities. NO headache, neck pain. no chest pain, sob, dizziness, lightheadedness. Most recent vital signs are blood pressure 101/61, pulse 96, respiration 16, temperature 98.4, O2 sat 93% on 2 L oxygen. CBC was unremarkable, BMP unremarkable, alcohol level 0.27. Hip x-ray showed commuted displaced angulated right femoral intertrochanteric fracture. Orthopedic service was consulted and they recommended admission. They will see her in the morning and decide when to take the patient to the OR based container finishing inspector levels. Review of Systems Narrative: Complete ROS was performed, pertinent positives and negatives per HPI. [facility] Medical History Pulmonary emphysema ?J43.9 - Emphysema, unspecified (ICD-10) Cellulitis of skin ?L03.90 - Cellulitis, unspecified (ICD-10) Smoker ?F17.200 - Nicotine dependence, unspecified, uncomplicated (ICD-10) 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 - Subcorneal pustular dermatitis (ICD-10) Psoriasis ?L40.9 - Psoriasis, unspecified (ICD-10) Osteoporosis ?M81.0 - Age-related osteoporosis without current pathological fracture (ICD-10) Surgical History History of tubal ligation ?Z98.51 - Tubal ligation status (ICD-10) Status post ORIF of fracture of ankle ?Z98.890 - Other specified postprocedural states (ICD-10) ?Z87.81 - Personal history of (healed) traumatic fracture (ICD-10) History of section ?Z98.891 - History of uterine scar from previous surgery (ICD-10) Social History What is your current living situation?: I presently have a place to live Problems where you live: no known problems Problems where you live details: steep stairs, does not use In the past 12 months, utilities in danger of being shut off: no In past 12 months, lack of transportation kept you from medical appts, meetings, work, or getting things needed for daily living: no In the past 12 mos, have been you worried that your food would run out before you had money to buy more?: never true In the past 12 mos, the food you bought just didn't last and you didn't have money to buy more?: never true Highest level of school completed/degree received: 12th grade, no diploma Smoking Status: Former smoker What tobacco products do you use: cigarettes Smoking quit date/years: <= 15 years ago How often do you have a drink containing alcohol: 4 or more times a week Alcohol type: beer and hard liquor How many standard drinks containing alcohol do you have on a typical day: 3 or 4 How often do you have six or more drinks on one occasion: Less than monthly AUDIT-C Alcohol total score: 6 Non-prescribed substance use: marijuana (any form) Caffeine: Yes How often does anyone, including family, friends and others, physically hurt you: rarely How often does anyone, including family, friends and others, insult or talk down to you: rarely How often does anyone, including family, friends and others, threaten you with harm: rarely How often does anyone, including family, friends and others, scream or curse at you: never Health Related Social Needs: Other personal risk factors, not elsewhere classified (Z91.89) Meds Home Medications and Allergies Home Medications ?Medication ?Instructions ?Recorded ?Confirmed ?Type No Known Home Medications 02/05/25 02/05/25 History Allergies Allergy/AdvReac Type Severity Reaction Status Date / Time ragweed pollen Allergy Intermediate Rash, Verified 02/05/25 00:45 Dyspnea azithromycin Allergy Mild Intolerance Verified 02/05/25 00:45 ciprofloxacin Allergy Mild Shortness Verified 02/05/25 00:45 of Breath latex Allergy Mild Rash Verified 02/05/25 00:45 Sulfa (Sulfonamide Allergy Mild Shortness Verified 02/05/25 00:45 Antibiotics) of Breath Fish Containing Products AdvReac Mild Nausea/Vomi Verified 02/05/25 00:45 ting pistachio nut AdvReac Mild GI Upset Verified 02/05/25 00:45 shellfish derived AdvReac Mild GI Upset Verified 02/05/25 00:45 Exam Narrative Exam Narrative: Physical Exam GENERAL: ?vital signs reviewed, well developed and nourished, in no distress HEENT: pupils are equal round and reactive to light, HEART: Regular rate and rhythm without any rubs, murmurs, or gallops. LUNGS: Clear to auscultation bilaterally with good air movement throughout ABDOMEN: Observation from nurse assisted exam, abdomen appears soft, nontender, and nondistended with Positive bowel sounds noted. EXTREMITIES: Strength and sensation is observed to be grossly within normal limits in the upper and lower extremities.? No focal strength deficit is observed. SKIN:? Observed warm and dry with color normal Const Vital Signs, click to edit/add: Vital Signs - 24 hr 02/04/25 23:26 02/05/25 00:11 02/05/25 01:07 Temperature 97.8 F Pulse Rate [Pulse Oximeter] 94 Respiratory Rate 16 Blood Pressure [Right Upper Arm] 112/73 Pulse Oximetry 92 93 75 L Oxygen Delivery Method Room Air Room Air Oxygen Flow Rate 02/05/25 01:07 02/05/25 01:08 Temperature Pulse Rate [Pulse Oximeter] Respiratory Rate Blood Pressure [Right Upper Arm] Pulse Oximetry 97 90 Oxygen Delivery Method Nasal Cannula Nasal Cannula Oxygen Flow Rate 2 Hospitalist - H&P: Result Labs Labs: Short CBC 02/04/25 Range/Units 00:03 WBC 6.66 (4.50-11.00) K/uL Hgb 14.3 (12.0-16.0) gm/dL Hct 43.1 (33.0-51.0) % Plt Count 285 (140-440) K/uL BMP 02/04/25 00:03 Sodium 135 Potassium 4.3 Chloride 98 Carbon Dioxide 27 BUN 10 Creatinine 0.7 Glucose 124 H Calcium 9.0 Assessment and Plan Assessment and plan (1) Alcohol intoxication: Status: Acute (2) Hip fracture: Status: Acute Plan - Admit patient to general medical floor. - Continue with pain control overnight - NPO until seen by ortho team. - physical therapy and occupation therapy eval in am. - Orthopedic surgery eval in am. # Alcohol use disorder - [facility] protocol in place Chronic problems # Osteoporosis # COPD # ALcohol use disorder # Psoriasis - currently on no home prescribed medicatons. # DVT proph - per ortho team based on time line for surgery. Total Time Spent Total Time Spent: 60 min Telehealth: Statement Statement Telehealth Visit: Today's History and Physical is provided via interactive telehealth by Ericka Taylor MD.? Patient is located at [facility].? Provider is located at [facility].? Nursing staff assisted with the patient's exam. The visit being done today meets criteria for a telehealth visit and the patient or patient?s parent/guardian is aware the visit is a telehealth visit. Camera Start Time: 02:07 Camera End Time: 02:25
[2025-02-05] MEDS: SODIUM CHLORIDE 0.9 % (FLUSH) 10 ML SYRINGE 5 ML IVF ×2 (03:19→08:38)
--- NOTE | 2025-02-05 06:07 | PC.NURSE ---
end of shift: Pt. arrived to the floor @ 0130. Pt. is drowsy & pleasant. AOx4. VSS. Pt. on 1-2L O2 NC PRN if O2 sats <92%. Pt. reports pain R hip >7/10. Pain med given; see EMAR. Active ice applied. Jose Guadalupe SNIDER assessment performed, two RNs bedside. Purewick placed, but no output 5 hours later. Bladder scan indicated retention; straight cath performed. NPO with mouth swab available for moisture. pt. resting w/ pillow elevating R hip. Pt. sleeping; call light w/i reach.
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
[2025-02-05] MEDS: LACTATED RINGERS 1000 ML 1,000 ML 100 ML IV ×2 (08:38→17:56)
[2025-02-05 09:00] LABS: Ethanol* 0.08 % (0.01-0.03)
--- NOTE | 2025-02-05 10:41 | REH.PT ---
PT/OT orders received, patient currently awaiting ortho consult for hip fracture. Possible surgery today or tomorrow. Will hold therapy until after ortho consult and see as appropriate and able.
[2025-02-05 12:31] LABS: Ethanol* 0.01 % (0.01-0.03)
--- NOTE | 2025-02-05 16:25 | PM.IMPN1 ---
Assessment and Plan Assessment and plan (1) Alcohol intoxication: Problem comment: Improving. ETOH level now 0.01%. Monitor for signs of withdrawal. Start CIWA protocol. Status: Acute (2) Hip fracture: Problem comment: Now able to consent for surgery. No further work up needed. Pain control difficult with IV meds. Will ask anesthesia to do a block. Laury aware. Planning surgery for tomorrow morning. Status: Acute (3) COPD (chronic obstructive pulmonary disease): Problem comment: Use oxygen carefully, monitor for oversedation. Status: Chronic Subjective Time Seen by Provider: : Date Seen: 02/05/25 Interval history: Fidel complains of pain in her right hip. Nursing staff notes that she is holding her urine and her bladder scan was 900cc. Exam Narrative: Exam Narrative: General: No acute distress. Awake, alert, oriented. No pallor. No jaundice. Oropharynx: Clear. Mucous membranes moist. Cardiovascular: Regular rate and rhythm. No murmurs, gallops, or rubs. Respiratory: Clear to auscultation bilaterally. No wheezes or crackles. Abdomen: Bowel sounds present. Soft, nondistended, nontender. Extremities: No ecchymosis over the hips. Right leg is shortened and externally rotated. No lower extremity edema. Const: Vital Signs, click to edit/add: Vital Signs - 24 hr 02/04/25 23:26 02/05/25 00:11 02/05/25 01:07 Temperature 97.8 F Pulse Rate Pulse Rate [Pulse Oximeter] 94 Respiratory Rate 16 Blood Pressure [Le ft Arm] Blood Pressure [Ri ght Arm] Blood Pressure [Ri ght Upper Arm] 112/73 Pulse Oximetry 92 93 75 L Oxygen Delivery Me thod Room Air Room Air Oxygen Flow Rate 02/05/25 01:07 02/05/25 01:08 02/05/25 01:30 Temperature 98.4 F Pulse Rate Pulse Rate [Pulse Oximeter] 99 Respiratory Rate 41 H Blood Pressure [Le ft Arm] Blood Pressure [Ri ght Arm] 118/71 Blood Pressure [Ri ght Upper Arm] Pulse Oximetry 97 90 95 Oxygen Delivery Me thod Nasal Cannula Nasal Cannula Nasal Cannula Oxygen Flow Rate 2 2 02/05/25 01:30 02/05/25 02:33 02/05/25 03:05 Temperature 98.4 F Pulse Rate 96 Pulse Rate [Pulse Oximeter] 99 Respiratory Rate 14 14 Blood Pressure [Le ft Arm] Blood Pressure [Ri ght Arm] 118/71 Blood Pressure [Ri ght Upper Arm] Pulse Oximetry 95 95 Oxygen Delivery Me thod Nasal Cannula Nasal Cannula Oxygen Flow Rate 2 2 02/05/25 03:30 02/05/25 04:00 02/05/25 05:14 Temperature 98.4 F 98.9 F Pulse Rate Pulse Rate [Pulse Oximeter] 96 96 97 Respiratory Rate 16 16 16 Blood Pressure [Le ft Arm] Blood Pressure [Ri ght Arm] 101/61 102/62 102/61 Blood Pressure [Ri ght Upper Arm] Pulse Oximetry 93 95 94 Oxygen Delivery Me thod Nasal Cannula Nasal Cannula Room Air Oxygen Flow Rate 2 2 02/05/25 07:00 02/05/25 07:00 02/05/25 07:00 Temperature 97.9 F 97.9 F Pulse Rate Pulse Rate [Pulse Oximeter] 103 H 103 H Respiratory Rate 16 16 Blood Pressure [Le ft Arm] 106/60 106/60 Blood Pressure [Ri ght Arm] 102/61 Blood Pressure [Ri ght Upper Arm] Pulse Oximetry 93 93 93 Oxygen Delivery Me thod Nasal Cannula Nasal Cannula Nasal Cannula Oxygen Flow Rate 1 1 1 02/05/25 07:00 02/05/25 07:00 02/05/25 10:00 Temperature Pulse Rate 97 Pulse Rate [Pulse Oximeter] 97 Respiratory Rate 16 Blood Pressure [Le ft Arm] Blood Pressure [Ri ght Arm] Blood Pressure [Ri ght Upper Arm] Pulse Oximetry 86 L Oxygen Delivery Me thod Room Air Oxygen Flow Rate 02/05/25 11:00 02/05/25 11:00 02/05/25 15:00 Temperature 97.6 F 97.6 F Pulse Rate Pulse Rate [Pulse Oximeter] 97 97 Respiratory Rate 16 16 Blood Pressure [Le ft Arm] 127/77 127/77 Blood Pressure [Ri ght Arm] Blood Pressure [Ri ght Upper Arm] Pulse Oximetry 93 93 95 Oxygen Delivery Me thod Room Air Room Air Nasal Cannula Oxygen Flow Rate 1 02/05/25 15:00 02/05/25 15:00 02/05/25 15:00 Temperature 98.1 F 98.1 F Pulse Rate Pulse Rate [Pulse Oximeter] 99 99 99 Respiratory Rate 16 16 16 Blood Pressure [Le ft Arm] 125/64 125/64 Blood Pressure [Ri ght Arm] 102/61 Blood Pressure [Ri ght Upper Arm] Pulse Oximetry 95 95 Oxygen Delivery Me thod Nasal Cannula Nasal Cannula Oxygen Flow Rate 1 1 Documenting provider has reviewed patient's vital signs: yes Labs Labs: Laboratory Results - last 24 hr 02/04/25 02/05/25 02/05/25 00:03 08:36 12:03 WBC 6.66 RBC 4.61 Hgb 14.3 Hct 43.1 MCV 94 MCH 31 MCHC 33 RDW Coeff of Lisa 13.9 Plt Count 285 Neut % (Auto) 70.5 Lymph % (Auto) 20.0 [place] % (Auto) 7.5 Eos % (Auto) 0.6 Baso % (Auto) 0.8 Neut # (Auto) 4.70 Lymph # (Auto) 1.33 [place] # (Auto) 0.50 Eos # (Auto) 0.04 Baso # (Auto) 0.05 Abs Immat Gran (auto) 0.04 Imm/Tot Granulo (auto) 0.6 Sodium 135 Potassium 4.3 Chloride 98 Carbon Dioxide 27 Anion Gap 10 BUN 10 Creatinine 0.7 Estimated Creat Clear 50.54 Estimated GFR 91 Glucose 124 H Calcium 9.0 Ethyl Alcohol 0.27 H 0.08 H 0.01
--- NOTE | 2025-02-05 17:38 | W.PM.NB ---
Nerve Block Nerve Block Time Seen by Provider: 17:20 Date Seen: 02/05/25 Type of block requested by surgeon for post-operative analgesia: TAINA/LFCN Side: right Time out performed: Yes Verification of patient name: Yes Verification of date of : Yes Site marking: site marked Name of person performing procedure: mantyl Continuous monitoring Was continuous monitoring of O2 sat, B/P, window and siding craftsman, recorded every 15 minutes?: Yes Procedure Checklist: sterile prep and needles Ultrasound guided. Images saved: Yes Medications given in 5ml increments after negative aspiration: Ropivicaine %: 0.5 mL: 20 Decadron (mg): 10 Precedex (mcg): 20 Patient tolerated procedure well: Yes Block Charges Block Charge (with Pro Fee): Other Periph Nerve Block Use of Ultrasound Machine for Block: Yes- US Guidance/pain block
--- NOTE | 2025-02-05 19:04 | PC.NURSE ---
End of Shift: Patient pleasant and cooperative. Afebrile. Rating pain in right hip up to 7-9/10 and PRN Dilaudid given x4 and oxycodone given x1. 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 O2 sats decrease to 83-86% while sleeping and 1L O2 keep sats above 88%. Scoring 1 on CIWA protocol. Turn and reposition while in bed. Larios placed. Tolerating regular diet with no nausea. Will be NPO after midnight.
[2025-02-05] MEDS: THIAMINE 100 MG TABLET 250 MG PO (21:01)
[2025-02-06] VITALS (24 sets, daily range): BP systolic 88–140; BP diastolic 48–87; PULSE 62–107; RESP 12–18; TEMP 36.1–37; O2SAT 91–99
[2025-02-06] MEDS: LACTATED RINGERS 1000 ML 1,000 ML 100 ML IV ×2 (03:53→09:56)
[2025-02-06 05:54] LABS: Hematocrit 37.8 % (33.0-51.0); Hemoglobin* 12.5 gm/dL (12.0-16.0); Immature Granulocytes Abs Auto 0.01 K/uL (0.00-0.30); Immature Granulocytes Pct Auto 0.2 %; Mean Corpuscular HGB Conc 33 gm/dL (32-36); Mean Corpuscular Hemoglobin 31 pg (26-34); Mean Corpuscular Volume 94 fL (80-100); RDW Coefficient of Variation % 13.6 % (11.5-15.5); Red Blood Count 4.03 m/uL (4.00-5.20); White Blood Count* 4.91 K/uL (4.50-11.00)
[2025-02-06 06:08] LABS: Lymphocytes Absolute Auto 0.70 K/uL (0.90-2.90); Slide Review Reflex No
[2025-02-06 06:17] LABS: Chloride* 100 mmol/L (96-114); Sodium* 133 mmol/L (135-149)
[2025-02-06 06:18] LABS: Potassium* 4.4 mmol/L (3.6-5.1)
[2025-02-06 06:20] LABS: Blood Urea Nitrogen* 10 mg/dL (7-30); Creatinine* 0.6 mg/dL (0.5-1.5); Est. Creatinine Clearance* 46.90; Estimated Glomerular Filt Rate 95 ml/min
[2025-02-06 06:21] LABS: Anion Gap 4 mEq/L (7-15); Calcium* 8.8 mg/dL (8.4-10.6); Carbon Dioxide* 29 mmol/L (20-32); Glucose* 167 mg/dL (60-115)
--- NOTE | 2025-02-06 06:27 | PC.NURSE ---
Shift note ([id number]): Patient pleasant and alert. Remained in bed this shift. Given?PRN Oxycodone once for right hip?pain rated 8/10. Urinary catheter patent and draining pale yellow urine. Total urinary output 850mL. CIWA?s 1 this shift. CMS intact.?
--- NOTE | 2025-02-06 07:42 | PM.ORCN ---
History of Present Illness HPI Date Seen: 02/06/25 Consult date: 02/05/25 Chief complaint: R hip pain Narrative: Fidel is a 75 year old female with notable history of COPD, Nicotine dependence (quit 06/2024), Psoriasis, and Alcoholism (3-4 drinks (kim) 4 times a week) who lives at home with her . She presented to ED after a fall from a standing height and right thigh/hip pain. She reports the night of her presentation she had a few drinks prior to her episode of fall that brought her to Ed. She reports she tripped over her big dog and fell and developed right hip pain. She otherwise able to move all other extremities. NO headache, neck pain. no chest pain, sob, dizziness, lightheadedness. In the ED, x-rays were obtained of the pelvis and right hip and revealed Rihjt femur intertrochanteric fracture with comminution and displacement. Orthopedic service was consulted and they recommended admission for eventual intramedullary nail fixation. Unfortunately, at the time of her admission and even the following day her blood alcohol level was still over the legal limit and therefore not felt appropriate to consent the patient for this surgical procedure as she was still not in her lucid state of mind. Therefore, I saw her on the morning of 02/06/2025 for consent of the surgical procedure and description of the perioperative time for her. [facility] Medical History (Updated 02/06/25 @ 07:53 by Joselito Schaeffer MD) COPD (chronic obstructive pulmonary disease) ?J44.9 - Chronic obstructive pulmonary disease, unspecified (ICD-10) Pulmonary emphysema ?J43.9 - Emphysema, unspecified (ICD-10) Cellulitis of skin ?L03.90 - Cellulitis, unspecified (ICD-10) Smoker ?F17.200 - Nicotine dependence, unspecified, uncomplicated (ICD-10) 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 - Subcorneal pustular dermatitis (ICD-10) Psoriasis ?L40.9 - Psoriasis, unspecified (ICD-10) Osteoporosis ?M81.0 - Age-related osteoporosis without current pathological fracture (ICD-10) Surgical History History of tubal ligation ?Z98.51 - Tubal ligation status (ICD-10) Status post ORIF of fracture of ankle ?Z98.890 - Other specified postprocedural states (ICD-10) ?Z87.81 - Personal history of (healed) traumatic fracture (ICD-10) History of section ?Z98.891 - History of uterine scar from previous surgery (ICD-10) Social History What is your current living situation?: I presently have a place to live Problems where you live: no known problems Problems where you live details: steep stairs, does not use In the past 12 months, utilities in danger of being shut off: no In past 12 months, lack of transportation kept you from medical appts, meetings, work, or getting things needed for daily living: no In the past 12 mos, have been you worried that your food would run out before you had money to buy more?: never true In the past 12 mos, the food you bought just didn't last and you didn't have money to buy more?: never true Highest level of school completed/degree received: 12th grade, no diploma Smoking Status: Former smoker What tobacco products do you use: cigarettes Smoking quit date/years: <= 15 years ago How often do you have a drink containing alcohol: 4 or more times a week Alcohol type: beer and hard liquor How many standard drinks containing alcohol do you have on a typical day: 3 or 4 How often do you have six or more drinks on one occasion: Less than monthly AUDIT-C Alcohol total score: 6 Non-prescribed substance use: marijuana (any form) Caffeine: Yes How often does anyone, including family, friends and others, physically hurt you: rarely How often does anyone, including family, friends and others, insult or talk down to you: rarely How often does anyone, including family, friends and others, threaten you with harm: rarely How often does anyone, including family, friends and others, scream or curse at you: never Health Related Social Needs: Other personal risk factors, not elsewhere classified (Z91.89) Meds Home Medications and Allergies Home Medications ?Medication ?Instructions ?Recorded ?Confirmed ?Type apple cider vinegar PO DAILY 02/05/25 History cholecalciferol (vitamin D3) 25 1,000 unit PO DAILY 02/05/25 02/05/25 History mcg (1,000 unit) tablet (Vitamin D3) collagen peptide powder 02/05/25 History desonide 0.05 % topical cream 1 applic topical BID PRN 02/05/25 02/05/25 History loratadine 10 mg tablet (Claritin) 10 mg PO DAILY 02/05/25 02/05/25 History tiotropium 2.5 mcg-olodaterol 2.5 2 inh inhalation DAILY 02/05/25 02/05/25 History mcg/actuation mist for inhalation (Stiolto Respimat) Allergies Allergy/AdvReac Type Severity Reaction Status Date / Time ragweed pollen Allergy Intermediate Rash, Verified 02/05/25 00:45 Dyspnea azithromycin Allergy Mild Intolerance Verified 02/05/25 00:45 ciprofloxacin Allergy Mild Shortness Verified 02/05/25 00:45 of Breath latex Allergy Mild Rash Verified 02/05/25 00:45 Sulfa (Sulfonamide Allergy Mild Shortness Verified 02/05/25 00:45 Antibiotics) of Breath Fish Containing Products AdvReac Mild Nausea/Vomi Verified 02/05/25 00:45 ting pistachio nut AdvReac Mild GI Upset Verified 02/05/25 00:45 shellfish derived AdvReac Mild GI Upset Verified 02/05/25 00:45 Ortho Exam Narrative Exam Narrative: She is alert. Lying supine in the hospital bed. Cooperative with the exam. No acute distress. Nonlabored breathing. Right lower extremity shows no lacerations or abrasions. No ecchymosis. Tender palpation around the right hip and with any hip or knee range of motion attempt. Neurologic intact in the superficial and deep peroneal as well as plantar distribution to sensory light touch and motor function. 2+ DP and PT pulse. Const Vital Signs, click to edit/add: Vital Signs - 24 hr 02/05/25 10:00 02/05/25 11:00 02/05/25 11:00 Temperature 97.6 F 97.6 F Pulse Rate Pulse Rate [Pulse Oximeter] 97 97 Respiratory Rate 16 16 Blood Pressure [Left Arm] 127/77 127/77 Blood Pressure [Right Arm] Pulse Oximetry 86 L 93 93 Oxygen Delivery Method Room Air Room Air Room Air Oxygen Flow Rate 02/05/25 15:00 02/05/25 15:00 02/05/25 15:00 Temperature 98.1 F 98.1 F Pulse Rate Pulse Rate [Pulse Oximeter] 99 99 Respiratory Rate 16 16 Blood Pressure [Left Arm] 125/64 125/64 Blood Pressure [Right Arm] 102/61 Pulse Oximetry 95 95 95 Oxygen Delivery Method Nasal Cannula Nasal Cannula Nasal Cannula Oxygen Flow Rate 1 1 1 02/05/25 15:00 02/05/25 15:00 02/05/25 17:11 Temperature Pulse Rate 97 Pulse Rate [Pulse Oximeter] 99 103 H Respiratory Rate 16 18 Blood Pressure [Left Arm] 154/80 H Blood Pressure [Right Arm] Pulse Oximetry 95 Oxygen Delivery Method Nasal Cannula Oxygen Flow Rate 1 02/05/25 17:30 02/05/25 17:45 02/05/25 18:00 Temperature Pulse Rate Pulse Rate [Pulse Oximeter] 96 94 97 Respiratory Rate 18 18 18 Blood Pressure [Left Arm] 153/81 H 130/72 126/68 Blood Pressure [Right Arm] Pulse Oximetry 94 92 94 Oxygen Delivery Method Nasal Cannula Nasal Cannula Nasal Cannula Oxygen Flow Rate 1 1 1 02/05/25 18:15 02/05/25 18:30 02/05/25 18:51 Temperature 97.9 F Pulse Rate Pulse Rate [Pulse Oximeter] 95 96 95 Respiratory Rate 16 Blood Pressure [Left Arm] 141/73 H 120/62 122/70 Blood Pressure [Right Arm] Pulse Oximetry 93 Oxygen Delivery Method Nasal Cannula Oxygen Flow Rate 1 02/05/25 18:55 02/06/25 00:10 02/06/25 00:10 Temperature 97.9 F 98.6 F Pulse Rate Pulse Rate [Pulse Oximeter] 95 98 Respiratory Rate 16 17 17 Blood Pressure [Left Arm] 122/70 Blood Pressure [Right Arm] 102/61 128/71 Pulse Oximetry 93 97 96 Oxygen Delivery Method Nasal Cannula Nasal Cannula Nasal Cannula Oxygen Flow Rate 1 2 2 02/06/25 01:02 02/06/25 03:41 02/06/25 07:00 Temperature 96.9 F L 97.9 F Pulse Rate 94 Pulse Rate [Pulse Oximeter] 82 87 Respiratory Rate 16 16 Blood Pressure [Left Arm] 124/87 Blood Pressure [Right Arm] 119/69 Pulse Oximetry 94 96 Oxygen Delivery Method Nasal Cannula Nasal Cannula Oxygen Flow Rate 2 2 Results Labs Labs: Laboratory Results - last 48 hr 02/04/25 02/05/25 02/05/25 00:03 08:36 12:03 WBC 6.66 RBC 4.61 Hgb 14.3 Hct 43.1 MCV 94 MCH 31 MCHC 33 RDW Coeff of Lisa 13.9 Plt Count 285 Neut % (Auto) 70.5 Lymph % (Auto) 20.0 [place] % (Auto) 7.5 Eos % (Auto) 0.6 Baso % (Auto) 0.8 Neut # (Auto) 4.70 Lymph # (Auto) 1.33 [place] # (Auto) 0.50 Eos # (Auto) 0.04 Baso # (Auto) 0.05 Abs Immat Gran (auto) 0.04 Imm/Tot Granulo (auto) 0.6 Sodium 135 Potassium 4.3 Chloride 98 Carbon Dioxide 27 Anion Gap 10 BUN 10 Creatinine 0.7 Estimated Creat Clear 50.54 Estimated GFR 91 Glucose 124 H Calcium 9.0 Ethyl Alcohol 0.27 H 0.08 H 0.01 02/06/25 05:29 WBC 4.91 RBC 4.03 Hgb 12.5 Hct 37.8 MCV 94 MCH 31 MCHC 33 RDW Coeff of Lisa 13.6 Plt Count 251 Neut % (Auto) 80.2 H Lymph % (Auto) 14.5 L [place] % (Auto) 5.1 Eos % (Auto) 0.0 Baso % (Auto) 0.0 Neut # (Auto) 3.90 Lymph # (Auto) 0.70 L [place] # (Auto) 0.30 Eos # (Auto) 0.00 Baso # (Auto) 0.00 Abs Immat Gran (auto) 0.01 Imm/Tot Granulo (auto) 0.2 Sodium 133 L Potassium 4.4 Chloride 100 Carbon Dioxide 29 Anion Gap 4 L BUN 10 Creatinine 0.6 Estimated Creat Clear 46.90 Estimated GFR 95 Glucose 167 H Calcium 8.8 Ethyl Alcohol Diagnostic results Additional Comments: AP pelvis and AP and cross-table lateral radiographic views of the right hip from [facility] dated 02/04/2025 were ordered by different provider and reviewed by me. This demonstrates a comminuted, varus angulated, displaced right intertrochanteric fracture with the lesser trochanter separate. The intertroch fracture extends right through the tip of the greater trochanter. There is also mild-moderate osteoarthritis of bilateral hips relatively similar in appearance with small osteophytosis and mild to moderate joint space narrowing. Assessment and Plan Assessment and plan (1) Alcohol intoxication: Problem comment: Improving. ETOH level now 0.01%. Monitor for signs of withdrawal. Start CIWA protocol. Status: Acute Total time spent: Total time spent is greater than 50% in coordination of care (as documented) at patient's floor/unit and/or counseling patient: (2) COPD (chronic obstructive pulmonary disease): Problem comment: Use oxygen carefully, monitor for oversedation. Status: Chronic Total time spent: Total time spent is greater than 50% in coordination of care (as documented) at patient's floor/unit and/or counseling patient: (3) Closed intertrochanteric fracture of right femur: Status: Acute Plan I had a thorough discussion with the patient today. I helped her understand her fracture and the pathology and how with the current state does not allow her to bear weight. We talked through the various pros and cons of both nonoperative and surgical intervention. This includes local risks (e.g. Infection, wound healing issues, nonunion, malunion, hardware metal sensitivity) as well as systemic risks (e.g. VTE, [place], stroke). She states understanding. She does have a reported metal sensitivity/allergy. She describes this to be related to cheap rings or earrings. She does have some hardware in her right ankle, reportedly and has not had any metal sensitivity or allergy from this. Following the surgery, I would anticipate weight-bearing as tolerated on the operative right lower extremity with walker ambulation assistance. She will benefit from seeing PT and OT for Education and assistance. Social work consult will be valuable for discharge planning. Her blood alcohol level has diminished from 0.27 to now within legal limits. Surgery will be planned for today, 02/06/2025 for right femur IM nail. I have coordinated care with the hospitalist team and the anesthesia team regarding the patient's planned surgical procedure.
[2025-02-06] MEDS: TRANEXAMIC ACID 100 MG/ML INJ 1000 MG IV (08:20)
--- NOTE | 2025-02-06 08:21 | REH.PT ---
Chart reviewed, patient scheduled for hip nailing today. Will hold PT and OT until patient is stable post-operatively.
--- NOTE | 2025-02-06 08:39 | SUR.OPER ---
PATIENT QUESTIONS ANSWERED SATISFACTORILY PREOPERATIVELY. PATIENT BROUGHT TO OR #2 PER CART AFTER ADMINISTRATION OF A BLOCK. Patient positioned supine on OR #2 bed. The perioperative team supported arms bilaterally on arm boards. Final approval of positioning by surgeon.
--- NOTE | 2025-02-06 08:49 | W.PM.NB ---
Nerve Block Nerve Block Time Seen by Provider: 08:15 Date Seen: 02/06/25 Type of block requested by surgeon for post-operative analgesia: TAINA/LFCN Side: right Time out performed: Yes Verification of patient name: Yes Verification of date of : Yes Site marking: site marked Name of person performing procedure: mantyl Continuous monitoring Was continuous monitoring of O2 sat, B/P, environmental monitoring technician, recorded every 15 minutes?: Yes Procedure Checklist: sterile prep and needles Ultrasound guided. Images saved: Yes Medications given in 5ml increments after negative aspiration: Ropivicaine %: 0.5 mL: 20 Patient tolerated procedure well: Yes Block Charges Block Charge (with Pro Fee): Other Periph Nerve Block Use of Ultrasound Machine for Block: Yes- US Guidance/pain block
--- NOTE | 2025-02-06 09:46 | P.ORPRC_ITS ---
Procedure Note Date of procedure: 02/06/25 Procedure: PREOPERATIVE DIAGNOSES: 1. Right femur intertrochanteric fracture, comminuted, displaced, closed, acute POSTOPERATIVE DIAGNOSES: 1. Right femur intertrochanteric fracture, comminuted, displaced, closed, acute NAME OF OPERATION: 1. Right femur intertrochanteric fracture fixation with intramedullary nail - 25% added difficulty and time for this case due to the significant comminution making reduction very difficult including the ability to hold the reduced position requiring increased number of hands/assistants (utilizinged our atmospheric technician for extra set of hands as well). 2. Intraoperative fluoroscopy operated/interpreted by Taylor Villela/Joselito Schaeffer M.D. for intraoperative evaluation of fracture reduction and implant positioning. Fluoroscopy time was 1 min, 58.1 sec. SURGEON: Joselito Schaeffer MD SUPERVISOR ENGINE REPAIR: Taylor Matson PA-C. Of note, an merchandising assistant was critical for this case to aide in patient positioning, extremity positioning, tissue retraction, instrument manipulation, and closure. ANESTHESIA: Spinal IMPLANTS: Synthes long TFN 11 mm x 380 mm with 100 mm lag screw and 1 distal 5.0 mm interlocking screw EBL: 150 ml COMPLICATIONS: None evident INDICATIONS: The patient is a pleasant, 75-year-old female who unfortunately sustained a recent fall. They landed on their right hip and were unable to bear weight. They experienced significant pain which prompted a visit to [facility]. X-rays were obtained and revealed a proximal femur fracture consistent with a pertrochanteric (i.e. intertrochanteric / subtrochanteric) femur fracture. This fracture was quite comminuted none. Given these findings, along with the desire to help with pain control and improved mobility / mobilization, surgery was recommended. FINDINGS: Intertrochanteric, comminuted, displaced right proximal femur fracture with shortening, and varus angulation. PROCEDURE: Following a thorough discussion of risks, benefits, and alternatives, consent was obtained and the right hip was marked. After obtaining proper medical evaluation determining the patient was optimized prior to surgery, they were brought to the operating room and placed supine on the operating table. Induction of anesthesia undertaken. 1 g IV Ancef was administered within 1 hr of incision preoperatively. Proper time-out was performed identifying proper patient, site, and procedure. The operative extremity was prepped & draped in the appropriate sterile fashion using ChloraPrep after the patient was positioned on the [place] table with the head in neutral alignment all bone prominences well padded. C-arm fluoroscopic imaging was utilized to obtain AP and lateral views of the operative hip. This indeed confirm proper reduction of the proximal femur fracture. 10 blade skin incision was made proximal to the greater trochanteric tip. Sharp incision through skin and gluteal fascia allowed palpation of the greater trochanteric tip. A sharp awl was utilized and placed against the greater trochanteric tip. This was confirmed on C-arm and both in AP and lateral planes to be in appropriate starting position. Aiming down the canal. Reduction was held during the awl insertion, during reaming, and during lag sc rew placement. This required a posterior directed force to the shaft & an anterolateral directed force to the femoral neck along with multiple hands to help hold this reduction. In fact, an extra incision was required to apply bone hook around the femoral neck base. Once breaching the cortex, the ball-tip guidewire was passed the length of the femur. Once confirming via palpable scrape and visual C-Arm imagining that the guide wire with intraosseous, the depth gauge was used. The proper nail length was selected. The opening / proximal reamer was used followed by diaphyseal reamers up to 12.5mm. The IMN was then opened and inserted and passed the length of the canal without difficulty. The triple trocar was then applied to the lateral femur, 10 blade incision through the skin and ITB band along the trocars allowed them to be advanced to the lateral cortex. This was confirmed fluoroscopically to be in appropriate position. The guide pin was then placed and confirmed on AP and lateral views with the goal of center center position. The length was measured as noted above and the reamer used followed by screw application. Reduction of the fracture was monitored during insertion. The proximal nail locking screw was tightened down, and left static as the fracture pattern was felt to be unstable given the significant comminution. At this stage, C-arm confirmed proper screw/leg screw position. We then turned our attention to the distal interlocking screws. Perfect [facility] technique was utilized, and the 10 blade skin incision allowed the drill bit to be placed, and confirmed on C-arm fluoroscopic imaging to be within the oblong hole. This was measured and the screw placed with good security of the screw. Again C-arm images were obtained to confirm position within the nail and the nail to be within the bone. At this stage, the wounds were thoroughly irrigated normal saline; closure was performed with #0 Vicryl for the deep gluteal fascia, and IT band. 2-0 Vicryl and 4-0 Monocryl was utilized for subcutaneous and subcuticular closure, respectively. The patient was awoken from anesthesia and transferred to the PACU in stable condition. * Again, 25% added difficulty and time for this case due to the significant comminution making reduction very difficult including the ability to hold the reduced position requiring increased number of hands/assistants (utilizinged our atmospheric technician for an extra set of hands as well). PLAN: 1. Weight bear as tolerated left lower extremity. 2. Encouraged ice. 3. Oxycodone for pain as needed. 4. Anticipate the need for residential facility transfer once medically stabilized 5. 23 hr perioperative antibiotics. 6. Xarelto for DVT prophylaxis along with SCDs.
--- NOTE | 2025-02-06 10:25 | P.ANES_ITS ---
Anesthesia Charges Start Date/Time Anesthesia Start Date: 02/06/25 Anesthesia Start Time: 07:57 Stop Date/Time Anesthesia Stop Date: 02/06/25 Anesthesia Stop Time: 10:21 Summary Emergency: MANAGER SQL Coding CPT Codes CPT Codes: ANESTH HIP JOINT SURGERY - 08991 ([id number]) P3 - PATIENT W/SEVERE SYS DISEASE, QK - COLOR DEPOSITING MACHINE TENDER 2-4 CNCRNT ANES PROC, QX - MANAGER SQL SVC W/ MD MED DIRECTION Additional Codes: Summary - Emergency: MANAGER SQL ([id number])
--- NOTE | 2025-02-06 10:25 | W.ANESCHARGE ---
Anesthesia Charges Start Date/Time Anesthesia Start Date: 02/06/25 Anesthesia Start Time: 07:57 Stop Date/Time Anesthesia Stop Date: 02/06/25 Anesthesia Stop Time: 10:21 Summary Emergency: JAILKEEPER Coding CPT Codes CPT Codes: ANESTH HIP JOINT SURGERY - 63831 ([id number]) P3 - PATIENT W/SEVERE SYS DISEASE, QK - REHEATER 2-4 CNCRNT ANES PROC, QX - JAILKEEPER SVC W/ MD MED DIRECTION Additional Codes: Summary - Emergency: JAILKEEPER ([id number])
--- NOTE | 2025-02-06 11:46 | P.IMPN_ITS ---
Assessment and Plan Assessment and plan (1) Hip fracture: Problem comment: - 02/06/25 R femur intertrochanteric fracture fixation with intramedullary nail - Routine post op cares - Pain control improved after block yesterday - VTE prophylaxis with SCDs, low dose Rivaroxaban Status: Acute (2) Alcohol intoxication: Problem comment: CIWA scores low. Ethanol level normalized yesterday at noon - continue to monitor for signs of withdrawal, CIWA protocol. Status: Acute (3) COPD (chronic obstructive pulmonary disease): Problem comment: Use oxygen carefully, monitor for oversedation. Status: Chronic Subjective Time Seen by Provider: 11:24 Date Seen: 02/06/25 Interval history: Fidel is doing well after surgery today. She is sitting up in bed, talking with her [id number]. Fidel states her pain is much better, possibly starting to tingle a little now after surgery. Exam Narrative: Exam Narrative: General: No acute distress. Awake, alert, oriented. No pallor. No jaundice. No tremor. Oropharynx: Clear. Mucous membranes moist. Cardiovascular: Regular rate and rhythm. No murmurs, gallops, or rubs. Respiratory: Clear to auscultation bilaterally. No wheezes or crackles. Extremities: R hip bandages are C/D/I. Const: Vital Signs, click to edit/add: Vital Signs - 24 hr 02/05/25 15:00 02/05/25 15:00 02/05/25 15:00 Temperature 98.1 F 98.1 F Pulse Rate Pulse Rate [Pulse Oximeter] 99 99 Respiratory Rate 16 16 Blood Pressure Blood Pressure [Le ft Arm] 125/64 125/64 Blood Pressure [Ri ght Arm] 102/61 Pulse Oximetry 95 95 95 Oxygen Delivery Me thod Nasal Cannula Nasal Cannula Nasal Cannula Oxygen Flow Rate 1 1 1 02/05/25 15:00 02/05/25 15:00 02/05/25 17:11 Temperature Pulse Rate 97 Pulse Rate [Pulse Oximeter] 99 103 H Respiratory Rate 16 18 Blood Pressure Blood Pressure [Le ft Arm] 154/80 H Blood Pressure [Ri ght Arm] Pulse Oximetry 95 Oxygen Delivery Me thod Nasal Cannula Oxygen Flow Rate 1 02/05/25 17:30 02/05/25 17:45 02/05/25 18:00 Temperature Pulse Rate Pulse Rate [Pulse Oximeter] 96 94 97 Respiratory Rate 18 18 18 Blood Pressure Blood Pressure [Le ft Arm] 153/81 H 130/72 126/68 Blood Pressure [Ri ght Arm] Pulse Oximetry 94 92 94 Oxygen Delivery Me thod Nasal Cannula Nasal Cannula Nasal Cannula Oxygen Flow Rate 1 1 1 02/05/25 18:15 02/05/25 18:30 02/05/25 18:51 Temperature 97.9 F Pulse Rate Pulse Rate [Pulse Oximeter] 95 96 95 Respiratory Rate 16 Blood Pressure Blood Pressure [Le ft Arm] 141/73 H 120/62 122/70 Blood Pressure [Ri ght Arm] Pulse Oximetry 93 Oxygen Delivery Me thod Nasal Cannula Oxygen Flow Rate 1 02/05/25 18:55 02/06/25 00:10 02/06/25 00:10 Temperature 97.9 F 98.6 F Pulse Rate Pulse Rate [Pulse Oximeter] 95 98 Respiratory Rate 16 17 17 Blood Pressure Blood Pressure [Le ft Arm] 122/70 Blood Pressure [Ri ght Arm] 102/61 128/71 Pulse Oximetry 93 97 96 Oxygen Delivery Me thod Nasal Cannula Nasal Cannula Nasal Cannula Oxygen Flow Rate 1 2 2 02/06/25 01:02 02/06/25 03:41 02/06/25 07:00 Temperature 96.9 F L 97.9 F Pulse Rate 94 Pulse Rate [Pulse Oximeter] 82 87 Respiratory Rate 16 16 Blood Pressure Blood Pressure [Le ft Arm] 124/87 Blood Pressure [Ri ght Arm] 119/69 Pulse Oximetry 94 96 Oxygen Delivery Me thod Nasal Cannula Nasal Cannula Oxygen Flow Rate 2 2 02/06/25 07:00 02/06/25 07:00 02/06/25 10:17 Temperature 97.9 F 97.3 F L Pulse Rate 78 Pulse Rate [Pulse Oximeter] 87 Respiratory Rate 16 16 12 Blood Pressure 88/64 L Blood Pressure [Le ft Arm] 124/87 Blood Pressure [Ri ght Arm] 119/69 Pulse Oximetry 96 94 94 Oxygen Delivery Me thod Nasal Cannula Nasal Cannula OxyMask Oxygen Flow Rate 2 2 10 02/06/25 10:25 02/06/25 10:30 02/06/25 10:35 Temperature 97.2 F L Pulse Rate 67 63 62 Pulse Rate [Pulse Oximeter] Respiratory Rate 14 14 14 Blood Pressure 119/65 116/56 L 115/67 Blood Pressure [Le ft Arm] Blood Pressure [Ri ght Arm] Pulse Oximetry 99 99 99 Oxygen Delivery Me thod OxyMask OxyMask OxyMask Oxygen Flow Rate 10 10 6 02/06/25 10:40 02/06/25 10:45 02/06/25 10:50 Temperature 97.2 F L 97.2 F L Pulse Rate 75 76 74 Pulse Rate [Pulse Oximeter] Respiratory Rate 16 16 14 Blood Pressure 108/62 108/62 113/70 Blood Pressure [Le ft Arm] Blood Pressure [Ri ght Arm] Pulse Oximetry 97 97 97 Oxygen Delivery Me thod Room Air Room Air Room Air Oxygen Flow Rate Documenting provider has reviewed patient's vital signs: yes Labs Labs: Laboratory Results - last 24 hr 02/05/25 02/06/25 12:03 05:29 WBC 4.91 RBC 4.03 Hgb 12.5 Hct 37.8 MCV 94 MCH 31 MCHC 33 RDW Coeff of Lisa 13.6 Plt Count 251 Neut % (Auto) 80.2 H Lymph % (Auto) 14.5 L [place] % (Auto) 5.1 Eos % (Auto) 0.0 Baso % (Auto) 0.0 Neut # (Auto) 3.90 Lymph # (Auto) 0.70 L [place] # (Auto) 0.30 Eos # (Auto) 0.00 Baso # (Auto) 0.00 Abs Immat Gran (auto) 0.01 Imm/Tot Granulo (auto) 0.2 Sodium 133 L Potassium 4.4 Chloride 100 Carbon Dioxide 29 Anion Gap 4 L BUN 10 Creatinine 0.6 Estimated Creat Clear 46.90 Estimated GFR 95 Glucose 167 H Calcium 8.8 Ethyl Alcohol 0.01
[2025-02-06] MEDS: CEFAZOLIN 2 GM in 0.9 % SODIUM CHLORIDE Mini-bag 100 ML IVPB ×2 (15:27→21:39)
[2025-02-06] MEDS: THIAMINE 100 MG TABLET 250 MG PO ×2 (15:27→21:32)
[2025-02-06] MEDS: FOLIC ACID 1 MG TABLET PO (15:28)
[2025-02-06] MEDS: SODIUM CHLORIDE 0.9 % (FLUSH) 10 ML SYRINGE 5 ML IVF ×3 (15:29→23:24)
[2025-02-06] MEDS: MULTIVITAMIN/MINERALS 1 TABLET 1 TAB PO (15:29)
--- NOTE | 2025-02-06 18:11 | PC.NURSE ---
Patient returned from surgery on RA. Tolerating PO fluids and a regular diet. Rating pain in her hip /10. Oxycodone given per the eMAR. Dressing is clean, dry and intact. Pt able to move her right extremity but still remains numb in the hip area. Pt able to stand and take steps to the chair with assist of 2, walker and gait belt.
[2025-02-06] MEDS: SENNOSIDES 1 TAB TABLET 2 TAB PO (21:32)
[2025-02-07] VITALS (8 sets, daily range): BP systolic 92–111; BP diastolic 60–70; PULSE 67–99; RESP 18; TEMP 36.7–36.9; O2SAT 90–94
[2025-02-07] MEDS: CEFAZOLIN 2 GM in 0.9 % SODIUM CHLORIDE Mini-bag 100 ML IVPB (06:03)
--- NOTE | 2025-02-07 06:55 | PC.NURSE ---
Shift note: Patient is doing ambulating with A1, walker and GB. Dressing intact, clean and dry. Ice pack applied to the incision site. Pain has always been rated at 8 and patient has been requesting Oxycodone at least every 2 hours. Patient tolerated regular diet well.Mirelax given for the complaint of constipation. vitally stable.
[2025-02-07 07:46] LABS: Hematocrit 31.4 % (33.0-51.0); Hemoglobin* 10.3 gm/dL (12.0-16.0); Immature Granulocytes Abs Auto 0.03 K/uL (0.00-0.30); Immature Granulocytes Pct Auto 0.5 %; Lymphocytes Absolute Auto 1.41 K/uL (0.90-2.90); Mean Corpuscular HGB Conc 33 gm/dL (32-36); Mean Corpuscular Hemoglobin 31 pg (26-34); Mean Corpuscular Volume 95 fL (80-100); RDW Coefficient of Variation % 14.2 % (11.5-15.5); Red Blood Count 3.29 m/uL (4.00-5.20); White Blood Count* 6.10 K/uL (4.50-11.00)
[2025-02-07 07:47] LABS: Chloride* 102 mmol/L (96-114); Potassium* 3.9 mmol/L (3.6-5.1); Sodium* 134 mmol/L (135-149)
[2025-02-07 07:48] LABS: Slide Review Reflex No
[2025-02-07 07:50] LABS: Anion Gap 2 mEq/L (7-15); Blood Urea Nitrogen* 11 mg/dL (7-30); Carbon Dioxide* 30 mmol/L (20-32); Creatinine* 0.6 mg/dL (0.5-1.5); Est. Creatinine Clearance* 46.90; Estimated Glomerular Filt Rate 95 ml/min
[2025-02-07 07:51] LABS: Calcium* 8.3 mg/dL (8.4-10.6); Glucose* 111 mg/dL (60-115)
[2025-02-07] MEDS: SENNOSIDES 1 TAB TABLET 2 TAB PO ×2 (08:28→20:17)
[2025-02-07] MEDS: SODIUM CHLORIDE 0.9 % (FLUSH) 10 ML SYRINGE 5 ML IVF ×2 (08:28→20:18)
[2025-02-07] MEDS: THIAMINE 100 MG TABLET 250 MG PO ×2 (08:28→20:16)
[2025-02-07] MEDS: FOLIC ACID 1 MG TABLET PO (08:29)
[2025-02-07] MEDS: RIVAROXABAN 10 MG TABLET PO (08:29)
[2025-02-07] MEDS: MULTIVITAMIN/MINERALS 1 TABLET 1 TAB PO (08:29)
--- NOTE | 2025-02-07 10:57 | P.IMPN_ITS ---
Assessment and Plan Assessment and plan (1) Hip fracture: Problem comment: - 02/06/25 R femur intertrochanteric fracture fixation with intramedullary nail - Routine post op cares - Pain control improved after block yesterday - VTE prophylaxis with SCDs, low dose Rivaroxaban - Awaiting PT/OT evaluation to determine disposition. Status: Acute (2) Alcohol intoxication: Problem comment: CIWA scores 0-1. Ethanol level normalized Friday at noon - continue to monitor for signs of withdrawal, CIWA protocol. If CIWA scores remain low, can discontinue CIWA monitoring tomorrow. Status: Acute (3) COPD (chronic obstructive pulmonary disease): Problem comment: Use oxygen carefully, monitor for oversedation. Status: Chronic Subjective Time Seen by Provider: 07:55 Date Seen: 02/07/25 Interval history: Fidel c/o pain this morning. She is due for more pain medication and her nurse is getting some for her. She has no other complaints. Staff reports she is not moving well yet. Exam Narrative: Exam Narrative: General: No acute distress. Awake, alert, oriented. No pallor. No jaundice. No tremor. Oropharynx: Clear. Mucous membranes moist. Cardiovascular: Regular rate and rhythm. No murmurs, gallops, or rubs. Respiratory: Clear to auscultation bilaterally. No wheezes or crackles. Extremities: R hip bandages are C/D/I. Const: Vital Signs, click to edit/add: Vital Signs - 24 hr 02/06/25 11:00 02/06/25 11:00 02/06/25 11:15 Temperature 97.2 F L 97 F L Pulse Rate Pulse Rate [Bilate ral Dorsalis Pedis ] 78 75 Pulse Rate [Pulse Oximeter] 78 75 Respiratory Rate 16 16 16 Blood Pressure [Le ft Arm] 113/72 136/76 Pulse Oximetry 94 97 94 Oxygen Delivery Me thod Room Air Room Air Room Air Oxygen Flow Rate 6 02/06/25 11:30 02/06/25 11:45 02/06/25 12:00 Temperature 97.4 F L 97.8 F Pulse Rate Pulse Rate [Bilate ral Dorsalis Pedis ] 78 Pulse Rate [Pulse Oximeter] 80 78 Respiratory Rate 16 16 Blood Pressure [Le ft Arm] 131/73 121/82 132/79 Pulse Oximetry 91 91 93 Oxygen Delivery Me thod Room Air Room Air Room Air Oxygen Flow Rate 6 02/06/25 12:30 02/06/25 13:00 02/06/25 14:00 Temperature 97.8 F Pulse Rate Pulse Rate [Bilate ral Dorsalis Pedis ] Pulse Rate [Pulse Oximeter] 76 85 78 Respiratory Rate 16 16 16 Blood Pressure [Le ft Arm] 140/69 H 126/70 108/57 L Pulse Oximetry 92 92 94 Oxygen Delivery Me [facility] Room Air Room Air Room Air Oxygen Flow Rate 02/06/25 15:00 02/06/25 15:00 02/06/25 15:00 Temperature 97 F L Pulse Rate Pulse Rate [Bilate ral Dorsalis Pedis ] 75 Pulse Rate [Pulse Oximeter] 80 80 Respiratory Rate 16 16 16 Blood Pressure [Le ft Arm] 126/70 Pulse Oximetry 92 92 Oxygen Delivery [facility] Room Air Room Air Oxygen Flow Rate 6 02/06/25 15:00 02/06/25 15:00 02/06/25 16:00 Temperature 98 F Pulse Rate 107 H Pulse Rate [Bilate ral Dorsalis Pedis ] Pulse Rate [Pulse Oximeter] 74 70 Respiratory Rate 18 18 Blood Pressure [Le ft Arm] 98/48 L 109/60 Pulse Oximetry 93 94 Oxygen Delivery [facility] Room Air Room Air Oxygen Flow Rate 02/06/25 19:00 02/06/25 22:10 02/06/25 22:10 Temperature 98.2 F 98.2 F Pulse Rate Pulse Rate [Bilate ral Dorsalis Pedis ] Pulse Rate [Pulse Oximeter] 95 100 100 Respiratory Rate 18 18 Blood Pressure [Le ft Arm] 126/60 118/51 L Pulse Oximetry 92 93 Oxygen Delivery [facility] Room Air Room Air Oxygen Flow Rate 02/06/25 22:10 02/06/25 22:36 02/07/25 03:00 Temperature 98.2 F Pulse Rate 107 H Pulse Rate [Bilate ral Dorsalis Pedis ] Pulse Rate [Pulse Oximeter] 91 Respiratory Rate 18 18 Blood Pressure [Le ft Arm] 111/61 Pulse Oximetry 93 92 Oxygen Delivery [facility] Room Air Room Air Oxygen Flow Rate 02/07/25 06:58 02/07/25 07:30 02/07/25 07:30 Temperature 98.5 F Pulse Rate 67 Pulse Rate [Bilate ral Dorsalis Pedis ] Pulse Rate [Pulse Oximeter] 86 Respiratory Rate 18 18 Blood Pressure [Le ft Arm] 109/70 Pulse Oximetry 92 92 Oxygen Delivery Me thod Room Air Room Air Oxygen Flow Rate 6 02/07/25 07:30 Temperature Pulse Rate Pulse Rate [Bilate ral Dorsalis Pedis ] 75 Pulse Rate [Pulse Oximeter] 86 Respiratory Rate 18 Blood Pressure [Le ft Arm] Pulse Oximetry Oxygen Delivery Me thod Oxygen Flow Rate Documenting provider has reviewed patient's vital signs: yes Labs Labs: Laboratory Results - last 24 hr 02/07/25 06:35 WBC 6.10 RBC 3.29 L Hgb 10.3 L Hct 31.4 L MCV 95 MCH 31 MCHC 33 RDW Coeff of Lisa 14.2 Plt Count 179 Neut % (Auto) 66.0 Lymph % (Auto) 23.1 [place] % (Auto) 10.2 Eos % (Auto) 0.0 Baso % (Auto) 0.2 Neut # (Auto) 4.03 Lymph # (Auto) 1.41 [place] # (Auto) 0.60 Eos # (Auto) 0.00 Baso # (Auto) 0.01 Abs Immat Gran (auto) 0.03 Imm/Tot Granulo (auto) 0.5 Sodium 134 L Potassium 3.9 Chloride 102 Carbon Dioxide 30 Anion Gap 2 L BUN 11 Creatinine 0.6 Estimated Creat Clear 46.90 Estimated GFR 95 Glucose 111 Calcium 8.3 L Blood Type O Positive Antibody Screen NEGATIVE
--- NOTE | 2025-02-07 11:23 | P.DS_ITS ---
Documented by User: Diane Robertson MD 02/19/25 07:18 DS: Providers Provider Date of admission: 02/05/25 01:23 Primary care physician: Not a Local Provider Admitting Clinician: Ericka Taylor MD Consults: 02/05/25 02:29 Consult to Physical Therapy [CONS] Routine Comment: Reason(s) for PT Consult:: Evaluate and Treat Any Restrictions?:: Non Wt Bearing Consult to Bean Weigher [CONS] Routine Comment: Reason for Consult:: Abuse, Neglect Potential 02/05/25 02:33 Consult to Physician [CONS] Routine Comment: Consulting Provider: Orthopedics, [facility] Has provider been notified: Yes 02/06/25 11:18 Consult to Occupational Therapy [CONS] Routine Comment: Reason(s) for OT Consult:: Evaluate and Treat Any Restrictions?:: See Comment Comment: evaluate and treat Consult to Physical Therapy [CONS] Routine Comment: Reason(s) for PT Consult:: Evaluate and Treat Any Restrictions?:: Wt Bearing as Tolerated Attending Physician on discharge: Ericka Taylor MD DS: Diagnosis Discharge Diagnosis (1) Closed intertrochanteric fracture of right femur: Status: Acute Problem details: Postop day 3 s/p right hip intertrochanteric fracture fixation with IM nail (DOS: 02/06/25, [facility]) (2) COPD (chronic obstructive pulmonary disease): Status: Chronic Problem details: Stable on room air at discharge (3) Alcohol intoxication: Status: Resolved Problem details: CIWA scores 0-1. Ethanol level normalized 02/05. Stable at discharge. DS: Summary Hospital Course Hospital Course: This is a 75-year-old female with history of alcohol use, COPD, and nicotine dependence who tripped over her dog and fell, developing right hip pain. She was found to have a right intratrochanteric hip fracture. Due to elevated medical blood alcohol level, surgery was delayed until she had sobered was able to consent. She was on a CIWA protocol and showed no evidence of withdrawal. She has done well postoperatively. Time Spent with Patient Time attestation: Total time spent providing and/or coordinating discharge services: Exam Narrative: Exam Narrative: General: No acute distress. Awake, alert, oriented. No pallor. No jaundice. No tremor. Oropharynx: Clear. Mucous membranes moist. Cardiovascular: Regular rate and rhythm. No murmurs, gallops, or rubs. Respiratory: Clear to auscultation bilaterally. No wheezes or crackles. Extremities: R hip bandages are C/D/I. Const: Vital Signs, click to edit/add: Vital Signs - 24 hr 02/06/25 11:30 02/06/25 11:45 02/06/25 12:00 Temperature 97.4 F L 97.8 F Pulse Rate Pulse Rate [Bilate ral Dorsalis Pedis ] 78 Pulse Rate [Pulse Oximeter] 80 78 Respiratory Rate 16 16 Blood Pressure [Le ft Arm] 131/73 121/82 132/79 Pulse Oximetry [address] Room Air Room Air Room Air Oxygen Flow Rate 6 02/06/25 12:30 02/06/25 13:00 02/06/25 14:00 Temperature 97.8 F Pulse Rate Pulse Rate [Bilate ral Dorsalis Pedis ] Pulse Rate [Pulse Oximeter] 76 85 78 Respiratory Rate 16 16 16 Blood Pressure [Le ft Arm] 140/69 H 126/70 108/57 L Pulse Oximetry [address] thod Room Air Room Air Room Air Oxygen Flow Rate 02/06/25 15:00 02/06/25 15:00 02/06/25 15:00 Temperature 97 F L Pulse Rate Pulse Rate [Bilate ral Dorsalis Pedis ] 75 Pulse Rate [Pulse Oximeter] 80 80 Respiratory Rate 16 16 16 Blood Pressure [Le ft Arm] 126/70 Pulse Oximetry 92 [facility] Flow Rate 6 02/06/25 15:00 02/06/25 15:00 02/06/25 16:00 Temperature 98 F Pulse Rate 107 H Pulse Rate [Bilate ral Dorsalis Pedis ] Pulse Rate [Pulse Oximeter] 74 70 Respiratory Rate 18 18 Blood Pressure [Le ft Arm] 98/48 L 109/60 Pulse Oximetry [address] thod Room Air Room Air Oxygen Flow Rate 02/06/25 19:00 02/06/25 22:10 02/06/25 22:10 Temperature 98.2 F 98.2 F Pulse Rate Pulse Rate [Bilate ral Dorsalis Pedis ] Pulse Rate [Pulse Oximeter] 95 100 100 Respiratory Rate 18 18 Blood Pressure [Le ft Arm] 126/60 118/51 L Pulse Oximetry [address] thod Room Air Room Air Oxygen Flow Rate 02/06/25 22:10 02/06/25 22:36 02/07/25 03:00 Temperature 98.2 F Pulse Rate 107 H Pulse Rate [Bilate ral Dorsalis Pedis ] Pulse Rate [Pulse Oximeter] 91 Respiratory Rate 18 18 Blood Pressure [Le ft Arm] 111/61 Pulse Oximetry 93 92 Oxygen Delivery Me thod Room Air Room Air Oxygen Flow Rate 02/07/25 06:58 02/07/25 07:30 02/07/25 07:30 Temperature 98.5 F Pulse Rate 67 Pulse Rate [Bilate ral Dorsalis Pedis ] Pulse Rate [Pulse Oximeter] 86 Respiratory Rate 18 18 Blood Pressure [Le ft Arm] 109/70 Pulse Oximetry 92 92 Oxygen Delivery Me thod Room Air Room Air Oxygen Flow Rate 6 02/07/25 07:30 Temperature Pulse Rate Pulse Rate [Bilate ral Dorsalis Pedis ] 75 Pulse Rate [Pulse Oximeter] 86 Respiratory Rate 18 Blood Pressure [Le ft Arm] Pulse Oximetry Oxygen Delivery Me thod Oxygen Flow Rate Documenting provider has reviewed patient's vital signs: yes DS: Data Data Completed and Pending Completed studies during hospitalization: 02/05/2025 EKG: Normal sinus rhythm, 93 beats per minute, right bundle-branch block. Ordering Physician: Cindy Tomas M.D. Date of Service: 02/04/25 Procedure(s): XR chest 1V Accession Number(s): [id number] cc: Provider,Not a Local; Cindy Tomas M.D.~ For Patients: As a result of the Cures Act, medical imaging exams and procedure reports are released immediately into your electronic medical record. You may view this report before your referring provider. If you have questions, please contact your health care provider. INDICATION: Cough, chest pain. TECHNIQUE: Chest 1 view. COMPARISON: None. FINDINGS: Cardiovascular and mediastinum: Cardiomediastinal silhouette is within normal limits. Lungs and pleural spaces: Hyperinflated lungs, likely reflecting COPD. No consolidation. No pleural effusions or pneumothorax. Bones and soft tissues: Old right 9th rib fracture. IMPRESSION: No evidence of acute pulmonary process. Dictated by Gino To MD @ 02/05/2025 12:17:49 AM (Electronically Signed) Ordering Physician: Sean Underwood M.D. Date of Service: 02/04/25 Procedure(s): XR hip RT min 2V Accession Number(s): [id number] cc: Provider,Not a Local; Sean Underwood M.D.~ For Patients: As a result of the Cures Act, medical imaging exams and procedure reports are released immediately into your electronic medical record. You may view this report before your referring provider. If you have questions, please contact your health care provider. INDICATION: Fall, right hip pain. TECHNIQUE: Pelvis and right hip 3 views. COMPARISON: None. FINDINGS: Comminuted displaced and angulated fracture of the right femoral intertrochanteric region. No dislocation. Mild degenerative changes of the bilateral hips. Right hip soft tissue swelling. IMPRESSION: Comminuted displaced angulated right femoral intertrochanteric fracture. Dictated by Gino To MD @ 02/05/2025 12:19:12 AM (Electronically Signed) Labs on day of discharge: Labs from last 24 hours 02/07/25 06:35 WBC 6.10 RBC 3.29 L Hgb 10.3 L Hct 31.4 L MCV 95 MCH 31 MCHC 33 RDW Coeff of Lisa 14.2 Plt Count 179 Neut % (Auto) 66.0 Lymph % (Auto) 23.1 [place] % (Auto) 10.2 Eos % (Auto) 0.0 Baso % (Auto) 0.2 Neut # (Auto) 4.03 Lymph # (Auto) 1.41 [place] # (Auto) 0.60 Eos # (Auto) 0.00 Baso # (Auto) 0.01 Abs Immat Gran (auto) 0.03 Imm/Tot Granulo (auto) 0.5 Sodium 134 L Potassium 3.9 Chloride 102 Carbon Dioxide 30 Anion Gap 2 L BUN 11 Creatinine 0.6 Estimated Creat Clear 46.90 Estimated GFR 95 Glucose 111 Calcium 8.3 L Blood Type O Positive Antibody Screen NEGATIVE Discharge Plan Discharge Disposition: [facility] Date of Admission: 02/05/25 01:23 Attending Provider on Discharge: Iliana Del Valle Consulting Providers: Joselito Schaeffer Primary Care Provider: Provider,Not a Local Condition: Stable Anticipated Discharge Date/Time: 02/09/25 07:27 Discharge Medications: New Xarelto 10 mg Tablet 10 mg PO DAILY Qty: 32 0RF Rx Instructions: continue daily, last dose is 03/13/25 thiamine mononitrate (vit B1) [Vitamin B-1 (mononitrate)] 100 mg Tablet 250 mg PO DAILY Qty: 30 0RF oxycodone 5 mg Tablet 2.5 - 5 mg PO Q2H PRN (Reason: Pain) Qty: 30 0RF Rx Instructions: 2.5 mg for pain 3-6, 5mg for 7-10 level pain folic acid 1 mg Tablet 1 mg PO DAILY Qty: 30 0RF acetaminophen [Tylenol Arthritis Pain] 650 mg tablet extended release 1,300 mg PO Q12H Qty: 120 0RF polyethylene glycol 3350 17 gram Powder In Packet 17 g PO DAILY PRN (Reason: Constipation) Qty: 30 0RF Continued Stiolto Respimat 2.5-2.5 mcg/actuation mist 2 inh inhalation DAILY loratadine [Claritin] 10 mg tablet 10 mg PO DAILY apple cider vinegar PO DAILY Rx Instructions: USES LIQUID MIXED WITH FRUIT JUICE collagen peptide powder Rx Instructions: scoop a day cholecalciferol (vitamin D3) [Vitamin D3] 25 mcg (1,000 unit) tablet 1,000 unit PO DAILY desonide 0.05 % cream 1 applic topical BID PRN Discharge Orders: Discharge Order (Routine); Ordered 02/09/25 Ordered By: Iliana Del Valle Consulting provider completed their portion of the discharge: Yes Activity Level: Activity as Tolerated, Weight Bearing as Tolerated and Use Walker Activity Detail: - May shower. Dressing is waterproof. - Mepilex dressings to be removed in 7 days. Upon removal, the nursing staff at the SNF will perform a wound check and notify our Orthopedic clinic with any concerns. For wound care, I recommend they cleanse the wound with soap and water using a clean wash cloth. Pat dry. Do not submerge wound under water until a fully healed scar has formed. Do not apply lotion, moisturizer, Neosporin or triple antibiotic ointment to the wounds. Surgical glue will flake off with time. - Weight bear as tolerated with walker for assistance. - Prescribed analgesics as needed. Patient is content with current narcotic medications. Minimize narcotic pain medication use; wean off and discontinue as soon as possible. - For DVT prophylaxis: Xarelto 10 mg daily x 35 days total. Also recommend ankle pumps when sedentary and frequent ambulation. - Follow-up with Dr. Schaeffer at 6 weeks postoperative or sooner if concerns arise. - Notify Orthopedics with any questions or concerns. Discharge Diet: Regular Follow Up Appointments: Joselito Schaeffer MD [Staff Physician, Orthopedics] - 03/24/25 9:00 am Referral Note: Follow-up at [facility]. Provider,Not a Local [Primary Care Provider, Family Practice] Forms: Patient Belongings, [facility] Info Instructions Admit to: SNF Discharge Potential: Good Length of Stay: <30 days Can use facility standing orders?: Yes Code Status: Full Code TEDs: N/A Rehab Potential: Good Therapy: Physical Therapy and Occupational Therapy Therapy Orders: Gait Training Oxygen: No Urinary Catheter: No Orders are good >30 days: Yes Documented by User: Iliana Del Valle MD 02/09/25 15:28 DS: Providers Provider Date Seen: 02/09/25 Attending Physician on discharge: Iliana Del Valle MD [facility] Date of Discharge: 02/09/25 DS: Diagnosis Discharge Diagnosis (1) Closed intertrochanteric fracture of right femur: Status: Acute Problem details: Postop day 3 s/p right hip intertrochanteric fracture fixation with IM nail (DOS: 02/06/25, [facility]) (2) COPD (chronic obstructive pulmonary disease): Status: Chronic Problem details: Stable on room air at discharge (3) Alcohol intoxication: Status: Resolved Problem details: CIWA scores 0-1. Ethanol level normalized 02/05. Stable at discharge. DS: Summary Hospital Course Hospital Course: This is a 75-year-old female with history of alcohol use, COPD, and nicotine dependence who tripped over her dog and fell, developing right hip pain. She was found to have a right intratrochanteric hip fracture. Due to elevated medical blood alcohol level, surgery was delayed until she had sobered was able to consent. She was on a CIWA protocol and showed no evidence of withdrawal. She has done well postoperatively. Status at Discharge Functional status at discharge: uses cane/walker Overall status at discharge: patient is progressing back to baseline Time Spent with Patient Time spent: Greater than 30 minutes Discharge Plan Discharge Disposition: [facility] Date of Admission: 02/05/25 01:23 Attending Provider on Discharge: Iliana Del Valle Consulting Providers: Joselito Schaeffer Primary Care Provider: Provider,Not a Local Condition: Stable Anticipated Discharge Date/Time: 02/09/25 07:27 Discharge Medications: New Xarelto 10 mg Tablet 10 mg PO DAILY Qty: 32 0RF Rx Instructions: continue daily, last dose is 03/13/25 thiamine mononitrate (vit B1) [Vitamin B-1 (mononitrate)] 100 mg Tablet 250 mg PO DAILY Qty: 30 0RF oxycodone 5 mg Tablet 2.5 - 5 mg PO Q2H PRN (Reason: Pain) Qty: 30 0RF Rx Instructions: 2.5 mg for pain 3-6, 5mg for 7-10 level pain folic acid 1 mg Tablet 1 mg PO DAILY Qty: 30 0RF acetaminophen [Tylenol Arthritis Pain] 650 mg tablet extended release 1,300 mg PO Q12H Qty: 120 0RF polyethylene glycol 3350 17 gram Powder In Packet 17 g PO DAILY PRN (Reason: Constipation) Qty: 30 0RF Continued Stiolto Respimat 2.5-2.5 mcg/actuation mist 2 inh inhalation DAILY loratadine [Claritin] 10 mg tablet 10 mg PO DAILY apple cider vinegar PO DAILY Rx Instructions: USES LIQUID MIXED WITH FRUIT JUICE collagen peptide powder Rx Instructions: scoop a day cholecalciferol (vitamin D3) [Vitamin D3] 25 mcg (1,000 unit) tablet 1,000 unit PO DAILY desonide 0.05 % cream 1 applic topical BID PRN Discharge Orders: Discharge Order (Routine); Ordered 02/09/25 Ordered By: Iliana Del Valle Consulting provider completed their portion of the discharge: Yes Activity Level: Activity as Tolerated, Weight Bearing as Tolerated and Use Walker Activity Detail: - May shower. Dressing is waterproof. - Mepilex dressings to be removed in 7 days. Upon removal, the nursing staff at the SNF will perform a wound check and notify our Orthopedic clinic with any concerns. For wound care, I recommend they cleanse the wound with soap and water using a clean wash cloth. Pat dry. Do not submerge wound under water until a fully healed scar has formed. Do not apply lotion, moisturizer, Neosporin or triple antibiotic ointment to the wounds. Surgical glue will flake off with time. - Weight bear as tolerated with walker for assistance. - Prescribed analgesics as needed. Patient is content with current narcotic medications. Minimize narcotic pain medication use; wean off and discontinue as soon as possible. - For DVT prophylaxis: Xarelto 10 mg daily x 35 days total. Also recommend ankle pumps when sedentary and frequent ambulation. - Follow-up with Dr. Schaeffer at 6 weeks postoperative or sooner if concerns arise. - Notify Orthopedics with any questions or concerns. Discharge Diet: Regular Follow Up Appointments: Joselito Schaeffer MD [Staff Physician, Orthopedics] - 03/24/25 9:00 am Referral Note: Follow-up at [facility]. Provider,Not a Local [Primary Care Provider, Family Practice] Forms: Patient Belongings, [facility] Info Instructions Admit to: SNF Discharge Potential: Good Length of Stay: <30 days Can use facility standing orders?: Yes Code Status: Full Code TEDs: N/A Rehab Potential: Good Therapy: Physical Therapy and Occupational Therapy Therapy Orders: Gait Training Oxygen: No Urinary Catheter: No Orders are good >30 days: Yes
--- NOTE | 2025-02-07 12:41 | P.ORPN_ITS ---
Subjective Subjective Time Seen by Provider: 11:40 Date Seen: 02/07/25 Principal diagnosis: Day 1 s/p rt hip intertroch fracture fixation w/ IM nail: 02/06/25, [facility] history: Patient is doing okay. This morning and during our visit, she c/o severe 8 out of 10 right hip pain at rest in her recliner. She reports a significant increase in pain after her block wore off last night. Fidel's pain is managed with Oxycodone. She is requesting 10 mg of oxycodone every two hours on a schedule and is requesting to be discharged on this amount as well. She denies postop chest pain, SOB, fever, chills, night sweats. Patient reports she is unable to weightbear, even though PT and OT notes from this AM report she did well with transfers with gait belt and staff assist. Patient has high level of anxiety surrounding catheter removal. Fidel explains she does not wish to ambulate to use the restroom and prefers the catheter be left in place. During our visit, she told me you will have to fight me [to remove the catheter]. Ortho Exam Narrative Exam Narrative: Incision/Dressing: Right lateral hip Mepilex dressing had a 2cm area of bloody drainage that leaked through the bandage margins and onto her gown. This dressing was removed. Wounds appear healthy with no purulent drainage nor erythema. No sign of infection. The wound was cleansed and a new Mepilex dressing was applied. The distal femur dressing was clean, dry and intact. Lateral thigh ecchymosis present. No erythema nor erythematous streaking. Warmth around the wound is appropriate. Ice is being utilized as needed. CMS: Intact distally with 2+ Dorsalis pedis and Posterior Tibial pulses. Calf: Bilateral calves are supple, with no swelling, pain, tenderness, erythema, discoloration or coolness to the touch. Constitutional: Patient is alert and oriented x3. Patient is in no acute distress and converses without labored breathing. Patient is able to make d ecisions and demonstrates good insight. Patient is pleasant and cooperative. Affect is full range and appropriate for the circumstances. Catheter in place. Const Vital Signs, click to edit/add: Vital Signs - 24 hr 02/06/25 13:00 02/06/25 14:00 02/06/25 15:00 Temperature 97.8 F Pulse Rate Pulse Rate [Bilateral Dorsalis Pedis] Pulse Rate [Pulse Oximeter] 85 78 Respiratory Rate 16 16 16 Blood Pressure [Left Arm] 126/70 108/57 L Pulse Oximetry 92 94 92 Oxygen Delivery Method Room Air Room Air Room Air Oxygen Flow Rate 02/06/25 15:00 02/06/25 15:00 02/06/25 15:00 Temperature 97 F L Pulse Rate 107 H Pulse Rate [Bilateral Dorsalis Pedis] 75 Pulse Rate [Pulse Oximeter] 80 80 Respiratory Rate 16 16 Blood Pressure [Left Arm] 126/70 Pulse Oximetry 92 Oxygen Delivery Method Room Air Oxygen Flow Rate 6 02/06/25 15:00 02/06/25 16:00 02/06/25 19:00 Temperature 98 F 98.2 F Pulse Rate Pulse Rate [Bilateral Dorsalis Pedis] Pulse Rate [Pulse Oximeter] 74 70 95 Respiratory Rate 18 18 18 Blood Pressure [Left Arm] 98/48 L 109/60 126/60 Pulse Oximetry 93 94 92 Oxygen Delivery Method Room Air Room Air Room Air Oxygen Flow Rate 02/06/25 22:10 02/06/25 22:10 02/06/25 22:10 Temperature 98.2 F Pulse Rate Pulse Rate [Bilateral Dorsalis Pedis] Pulse Rate [Pulse Oximeter] 100 100 Respiratory Rate 18 18 Blood Pressure [Left Arm] 118/51 L Pulse Oximetry 93 93 Oxygen Delivery Method Room Air Room Air Oxygen Flow Rate 02/06/25 22:36 02/07/25 03:00 02/07/25 06:58 Temperature 98.2 F Pulse Rate 107 H 67 Pulse Rate [Bilateral Dorsalis Pedis] Pulse Rate [Pulse Oximeter] 91 Respiratory Rate 18 Blood Pressure [Left Arm] 111/61 Pulse Oximetry 92 Oxygen Delivery Method Room Air Oxygen Flow Rate 02/07/25 07:30 02/07/25 07:30 02/07/25 07:30 Temperature 98.5 F Pulse Rate Pulse Rate [Bilateral Dorsalis Pedis] 75 Pulse Rate [Pulse Oximeter] 86 86 Respiratory Rate 18 18 18 Blood Pressure [Left Arm] 109/70 Pulse Oximetry 92 92 Oxygen Delivery Method Room Air Room Air Oxygen Flow Rate 02/07/25 12:17 Temperature 98.1 F Pulse Rate Pulse Rate [Bilateral Dorsalis Pedis] Pulse Rate [Pulse Oximeter] 96 Respiratory Rate 18 Blood Pressure [Left Arm] 110/60 Pulse Oximetry 94 Oxygen Delivery Method Room Air Oxygen Flow Rate Assessment and Plan Assessment and plan (1) Closed intertrochanteric fracture of right femur: Problem details: Day 1 s/p right hip intertrochanteric fracture fixation with IM nail (DOS: 02/06/25, [facility]) Status: Acute Assessment and Plan: - May shower. Dressing is waterproof. - Mepilex dressings to be removed in 7-10 days. Upon removal, the nursing staff at the SNF will perform a wound check and notify our Orthopedic clinic with any concerns. For wound care, I recommend they cleanse the wound with soap and water using a clean wash cloth. Pay dry. Do not submerge wound under water until a fully healed scar has formed. Do not apply lotion, moisturizer, Neosporin or triple antibiotic ointment to the wounds. Surgical glue will flake off with time. - Weight bear as tolerated with walker for assistance. - Prescribed analgesics as needed. Patient is content with current narcotic medications. Minimize narcotic pain medication use; wean off and discontinue as soon as possible. - For DVT prophylaxis: Xarelto. Also recommend ankle pumps when sedentary and frequent ambulation. - Social consult for discharge planning. - Anticipate patient will be discharged to SNF. Discharge date is unknown. - Follow-up with Dr. Schaeffer at 6 weeks postoperative or sooner if concerns arise. - Notify Orthopedics with any questions or concerns. ([phone])
--- NOTE | 2025-02-07 14:05 | PC.NURSE ---
pt has been alert x4 she has been pleasant. pain has been 8-10 she is getting 10 mg po pain meds. Tolerating PO fluids and a regular diet. Dressing was clean, it had some drainage and intact. Nishant change the dressing. pt is up with 1 assist walker and GB. she can move from the chair and the bed. . Pt able to stand and take steps to the chair with assist of 2, walker and gait belt.
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
[2025-02-07] MEDS: ACETAMINOPHEN 325 MG TABLET 650 MG PO (18:00)
--- NOTE | 2025-02-07 22:57 | PC.NURSE ---
Shift Note: Pt friendly and cooperative. VS WNL and LS COA. Pain is well controlled with active ice and PRN Oxycodone. Surgical dressing C,D,&I. Pt reluctant to ambulate to the BR and is using BSC. She also c/o of feeling constipated and requested prune juice.
[2025-02-08] VITALS (9 sets, daily range): BP systolic 94–120; BP diastolic 56–100; PULSE 81–110; RESP 16–20; TEMP 36.5–36.9; O2SAT 90–95
[2025-02-08] MEDS: ACETAMINOPHEN 325 MG TABLET 650 MG PO ×3 (04:13→20:02)
--- NOTE | 2025-02-08 06:43 | PC.NURSE ---
End of shift report [id number]: VSS. Afebrile. Right hip dressings are C/D/I. CIWAs are negative. Pt ambulated a couple steps to the bedside charissa, Khadra, SIM, W. Chaplain Resident encouraged/ educated pt on the importance of ambulation. Pt rates pain a 8-5, prn pain meds offered and given with relief. Intermittent ice applied. Pt is resting in bed, call light within reach.?
--- NOTE | 2025-02-08 07:53 | P.ORPN_ITS ---
Subjective Subjective Time Seen by Provider: 08:00 Date Seen: 02/08/25 Principal diagnosis: Day 1 s/p rt hip intertroch fracture fixation w/ IM nail: 02/06/25, aLury Arellano history: Fidel is doing well this morning. She c/o severe right hip pain overnight and believes the oxycodone received in the middle of the night was a placebo and did nothing. Patient is hesitant to decrease her oxycodone dosage. She has also been minimally taking acetaminophen in addition to the oxycodone. She has taken 650 mg of acetaminophen on two occasions since her surgery. Ice is being utilized. Patient's catheter was removed. I was able to witness Fidel ambulate from the restroom to her recliner. She did quite well and appeared stable with her walker and 1 staff assist. Patient also admits to constipation. Her last bowel movement was on 02/04. Thus far, she has tried prune juice and senna with no improvement. Ortho Exam Narrative Exam Narrative: Incision/Dressing: Right lateral hip dressing has a small, 1 cm, area of bloody drainage. Dressing was removed. Wounds were cleansed with Chloraprep. Additional Dermabond was applied. New Mepilex dressing was applied. Distal femur dressing is clean, dry and intact. Lateral thigh ecchymosis present. No erythema nor erythematous streaking. Warmth around the wound is appropriate. Ice is being utilized as needed. CMS: Intact distally with 2+ Dorsalis pedis and Posterior Tibial pulses. Calf: Bilateral calves are supple, with no swelling, pain, tenderness, erythema, discoloration or coolness to the touch. Constitutional: Patient is alert and oriented x3. Patient is in no acute distress and converses without labored breathing. Patient is able to make decisions and demonstrates good insight. Patient is pleasant and cooperative. Affect is full range and appropriate for the circumstances. Const Vital Signs, click to edit/add: Vital Signs - 24 hr 02/07/25 12:17 02/07/25 15:00 02/07/25 15:00 Temperature 98.1 F 98.1 F 98.1 F Pulse Rate Pulse Rate [Bilateral Dorsalis Pedis] Pulse Rate [Pulse Oximeter] 96 93 93 Respiratory Rate 18 18 18 Blood Pressure [Left Arm] 110/60 110/61 110/61 Pulse Oximetry 94 90 90 Oxygen Delivery Method Room Air Room Air Room Air 02/07/25 15:00 02/07/25 15:00 02/07/25 15:00 Temperature Pulse Rate 99 Pulse Rate [Bilateral Dorsalis Pedis] 75 Pulse Rate [Pulse Oximeter] 93 Respiratory Rate 18 18 Blood Pressure [Left Arm] Pulse Oximetry 90 Oxygen Delivery Method Room Air 02/07/25 15:41 02/07/25 19:00 02/07/25 19:00 Temperature 98.5 F 98.5 F Pulse Rate Pulse Rate [Bilateral Dorsalis Pedis] Pulse Rate [Pulse Oximeter] 92 92 Respiratory Rate 18 18 18 Blood Pressure [Left Arm] 109/60 109/60 Pulse Oximetry 92 90 90 Oxygen Delivery Method Room Air Room Air Room Air 02/07/25 23:00 02/07/25 23:00 02/07/25 23:00 Temperature 98.2 F 98.2 F Pulse Rate Pulse Rate [Bilateral Dorsalis Pedis] Pulse Rate [Pulse Oximeter] 91 91 Respiratory Rate 18 18 18 Blood Pressure [Left Arm] 92/66 92/66 Pulse Oximetry 93 93 93 Oxygen Delivery Method Room Air Room Air Room Air 02/07/25 23:00 02/07/25 23:00 02/08/25 03:00 Temperature 98.5 F Pulse Rate 92 Pulse Rate [Bilateral Dorsalis Pedis] Pulse Rate [Pulse Oximeter] 91 98 Respiratory Rate 18 20 Blood Pressure [Left Arm] 106/57 L Pulse Oximetry 92 Oxygen Delivery Method Room Air 02/08/25 03:00 Temperature 98.5 F Pulse Rate Pulse Rate [Bilateral Dorsalis Pedis] Pulse Rate [Pulse Oximeter] 98 Respiratory Rate 20 Blood Pressure [Left Arm] 106/57 L Pulse Oximetry 92 Oxygen Delivery Method Room Air Assessment and Plan Assessment and plan (1) Closed intertrochanteric fracture of right femur: Problem details: Day 1 s/p right hip intertrochanteric fracture fixation with IM nail (DOS: 02/06/25Laury) Status: Acute Assessment and Plan: - Regarding constipation, an order for polyethylene glycol PRN was entered. She will continue to drink prune juice. Fidel and I also discussed that minimizing narcotic usage will aid in relieving her constipation. - May shower. Dressing is waterproof. - Mepilex dressings to be removed in 7-10 days. Upon removal, the nursing staff at the SNF will perform a wound check and notify our Orthopedic clinic with any concerns. For wound care, I recommend they cleanse the wound with soap and water using a clean wash cloth. Pat dry. Do not submerge wound under water until a fully healed scar has formed. Do not apply lotion, moisturizer, Neosporin or triple antibiotic ointment to the wounds. Surgical glue will flake off with time. - Weight bear as tolerated with walker for assistance. - Prescribed analgesics as needed. Patient is content with current narcotic medications. Minimize narcotic pain medication use; wean off and discontinue as soon as possible. I'd like Fidel to begin to decrease oxycodone dosage to 2.5- 5mg PRN. Fidel has been taking acetaminophen minimally as part of her pain regimen. We discussed increasing acetaminophen dosage and frequency. - For DVT prophylaxis: Xarelto 10 mg daily x 35 days. Also recommend ankle pumps when sedentary and frequent ambulation. - Social consult for discharge planning. - Anticipate patient will be discharged to SNF. Discharge date is unknown. - Follow-up with Dr. Schaeffer at 6 weeks postoperative or sooner if concerns arise. - Notify Orthopedics with any questions or concerns. *Please notify me when discharge location has been determined so I may submit Fidel's discharge medications: [phone].
[2025-02-08] MEDS: THIAMINE 100 MG TABLET 250 MG PO ×2 (08:53→20:38)
[2025-02-08] MEDS: RIVAROXABAN 10 MG TABLET PO (08:53)
[2025-02-08] MEDS: SENNOSIDES 1 TAB TABLET 2 TAB PO ×2 (08:53→20:38)
[2025-02-08] MEDS: MULTIVITAMIN/MINERALS 1 TABLET 1 TAB PO (08:54)
[2025-02-08] MEDS: FOLIC ACID 1 MG TABLET PO (08:54)
[2025-02-08] MEDS: SODIUM CHLORIDE 0.9 % (FLUSH) 10 ML SYRINGE 5 ML IVF ×2 (09:04→20:38)
--- NOTE | 2025-02-08 13:35 | PM.IMPN1 ---
Assessment and Plan Assessment and plan (1) Closed intertrochanteric fracture of right femur: Problem comment: Postop day 2 s/p right hip intertrochanteric fracture fixation with IM nail (DOS: 02/06/25, Laury) Status: Acute (2) COPD (chronic obstructive pulmonary disease): Problem comment: Use oxygen carefully, monitor for oversedation. Status: Chronic (3) Alcohol intoxication: Problem comment: CIWA scores 0-1. Ethanol level normalized Friday at noon - continue to monitor for signs of withdrawal, CIWA protocol. If CIWA scores remain low, can discontinue CIWA monitoring tomorrow. Status: Acute Subjective Date Seen: 02/08/25 Interval history: Fidel c/o pain this morning. She is due for more pain medication and her nurse is getting some for her. She has no other complaints. Staff reports she is not moving well yet. Exam Narrative: Exam Narrative: PHYSICAL EXAM: CONSTITUTIONAL: Conversive, good historian. A/O. Knows setting and context. GENERAL: Well-developed at ideal body weight, in no respiratory distress. VITAL SIGNS: see record. HEENT: Sclerae are anicteric. No petechiae. CARDIAC: rhythm is regular. There is no S3 or rub. No harsh murmurs. Extremities show trace edema with symmetrical pulses. PULM: good air entry with no wheeze. MSK: Surgical wound is dry without evidence of erythema or drainage NEURO: Speech is fluent. A brief neurologic exam is negative. SKIN: No rashes, petechiae, concerning changes PSYCHIATRIC: Euthymic. Const: Vital Signs, click to edit/add: Vital Signs - 24 hr 02/07/25 15:02/07/25 15:00 02/07/25 15:00 Temperature 98.1 F 98.1 F Pulse Rate Pulse Rate [Bilate ral Dorsalis Pedis ] Pulse Rate [Pulse Oximeter] 93 93 Respiratory Rate 18 18 18 Blood Pressure [Le ft Arm] 110/61 110/61 Pulse Oximetry 90 90 90 Oxygen Delivery Me thod Room Air Room Air Room Air 02/07/25 15:00 02/07/25 15:00 02/07/25 15:41 Temperature Pulse Rate 99 Pulse Rate [Bilate ral Dorsalis Pedis ] 75 Pulse Rate [Pulse Oximeter] 93 Respiratory Rate 18 18 Blood Pressure [Le ft Arm] Pulse Oximetry 92 Oxygen Delivery Me thod Room Air 02/07/25 19:00 02/07/25 19:00 02/07/25 23:00 Temperature 98.5 F 98.5 F 98.2 F Pulse Rate Pulse Rate [Bilate ral Dorsalis Pedis ] Pulse Rate [Pulse Oximeter] 92 92 91 Respiratory Rate 18 18 18 Blood Pressure [Le ft Arm] 109/60 109/60 92/66 Pulse Oximetry 90 90 93 Oxygen Delivery Me thod Room Air Room Air Room Air 02/07/25 23:00 02/07/25 23:00 02/07/25 23:00 Temperature 98.2 F Pulse Rate Pulse Rate [Bilate ral Dorsalis Pedis ] Pulse Rate [Pulse Oximeter] 91 91 Respiratory Rate 18 18 18 Blood Pressure [Le ft Arm] 92/66 Pulse Oximetry 93 93 Oxygen Delivery Me thod Room Air Room Air 02/07/25 23:00 02/08/25 03:00 02/08/25 03:00 Temperature 98.5 F 98.5 F Pulse Rate 92 Pulse Rate [Bilate ral Dorsalis Pedis ] Pulse Rate [Pulse Oximeter] 98 98 Respiratory Rate 20 20 Blood Pressure [Le ft Arm] 106/57 L 106/57 L Pulse Oximetry 92 92 Oxygen Delivery Me thod Room Air Room Air 02/08/25 07:00 02/08/25 08:00 02/08/25 08:00 Temperature Pulse Rate 97 Pulse Rate [Bilate ral Dorsalis Pedis ] Pulse Rate [Pulse Oximeter] 97 Respiratory Rate 18 18 Blood Pressure [Le ft Arm] 97/56 L Pulse Oximetry 95 95 Oxygen Delivery Me thod Room Air Room Air 02/08/25 11:00 Temperature 98.0 F Pulse Rate Pulse Rate [Bilate ral Dorsalis Pedis ] Pulse Rate [Pulse Oximeter] 87 Respiratory Rate 18 Blood Pressure [Le ft Arm] 108/63 Pulse Oximetry 94 Oxygen Delivery Me thod Room Air
--- NOTE | 2025-02-08 16:35 | PC.SOCIAL ---
Discharge planning: Pt has been accepted to [facility] for short-term rehab in a private room. Pt's insurance has a prior authorization that has been placed by [facility] today. Pt has met her out of pocket deductible; therefore, she will ot have any co-pays starting on day [address] [facility](if she were to still be there). Pt will hopefully be able to discharge to [facility] tomorrow(Wed), pending the result of the prior authorization. Pt requested non-emergent EMS transportation to [facility] and is aware of the cost(92+7x3= 113). Pt signed the non-emergent EMS wheelchair transport form and this worker gave it to the charge nurse on duty. As of right now, non-emergent EMS is scheduled for a pick-up time of 9:41-10:26am. drag out worker will complete the pre-admission screening tomorrow morning. Social work to follow-up as needed.
--- NOTE | 2025-02-08 19:00 | PC.NURSE ---
The patient is pleasant with interactions during cares. The patient rates her pain moderate-severe throughout the day. PRN oxy was given pretty consistently q2 hrs. The patient was constipated and bowel Meds were given. The patient had a BM at the end of the day. The patient has a poor appetite and only ate 1/2 of a sandwich today. Takes pills in applesauce or pudding. A few soft BP's, the patient is not symptomatic. Call light within reach. Ax1 w/ RW slow and deliberate. 2 dressings to R hip is CDI. Pending admission to [facility] tomorrow. Emily POTTER BSN
[2025-02-09 03:00] VITALS: BP 118/61; PULSE 97; RESP 16; TEMP 37.2; O2SAT 91
[2025-02-09] MEDS: ACETAMINOPHEN 325 MG TABLET 650 MG PO ×2 (03:44→09:52)
[2025-02-09 07:00] VITALS: PULSE 113; O2SAT 93
--- NOTE | 2025-02-09 07:13 | PC.NURSE ---
End of shift report : VSS. Afebrile. Right hip dressings are C/D/I. Pt ambulates to the BR 1A, GB, W. Pt rates pain a 8-7/10 while at rest, prn pain meds offered and given upon reassessments pt appears to be resting comfortably. Intermittent ice applied. Pt stated she has a decreased appetite, protein shake was offered and pt agreed to try it. Pt is resting in bed, call light within reach.?
--- NOTE | 2025-02-09 08:01 | PM.ORPN ---
Subjective Subjective Time Seen by Provider: 07:50 Date Seen: 02/09/25 Principal diagnosis: Day 3 s/p rt hip intertroch fracture fixation w/ IM nail: 02/06/25, Laury Arellano history: Fidel is doing well this morning and resting comfortably in her recliner. She reports she slept better last night. Pain is well managed with icing, acetaminophen and 5mg oxycodone. Patient had her first postop bowel movement yesterday evening after receiving polyethylene glycol. Denies fever, chills, chest pain, SOB. Denies numbness/tingling distally, but admits to decreased sensation over her lateral right hip/thigh. Anticipated plan is Fidel will be discharged to [facility] later today. Ortho Exam Narrative Exam Narrative: Incision/Dressing: Right lateral hip dressing has a pinpoint area of bloody drainage. This dressing was left in place. Both Mepilex dressings are clean, dry and intact. Lateral thigh ecchymosis present. No erythema nor erythematous streaking. Warmth around the wound is appropriate. Ice is being utilized as needed. CMS: Intact distally with 2+ Dorsalis pedis and Posterior Tibial pulses. 5/5 motor strength dorsal and plantar flexion. Confirmed sensation distally. Intact straight leg raise. Decreased sensation present over right lateral thigh/hip. Calf: Bilateral calves are supple, with no swelling, pain, tenderness, erythema, discoloration or coolness to the touch. Constitutional: Patient is alert and oriented x3. Patient is in no acute distress and converses without labored breathing. Patient is able to make decisions and demonstrates good insight. Patient is pleasant and cooperative. Affect is full range and appropriate for the circumstances. Const Vital Signs, click to edit/add: Vital Signs - 24 hr 02/08/25 11:00 02/08/25 15:00 02/08/25 15:00 Temperature 98.0 F 97.9 F Pulse Rate Pulse Rate [Pulse Oximeter] 87 81 Respiratory Rate 18 16 16 Blood Pressure [Left Arm] 108/63 94/57 L Pulse Oximetry 94 93 93 Oxygen Delivery Method Room Air Room Air Room Air 02/08/25 15:00 02/08/25 19:00 02/08/25 21:39 Temperature 97.7 F Pulse Rate 104 H Pulse Rate [Pulse Oximeter] 110 H 110 H Respiratory Rate 18 18 Blood Pressure [Left Arm] 120/100 H Pulse Oximetry 93 Oxygen Delivery Method Room Air 02/08/25 22:30 02/08/25 23:00 02/08/25 23:00 Temperature 98.5 F Pulse Rate 96 Pulse Rate [Pulse Oximeter] 96 Respiratory Rate 18 18 Blood Pressure [Left Arm] 116/57 L Pulse Oximetry 90 90 Oxygen Delivery Method Room Air Room Air 02/09/25 03:00 Temperature 99 F Pulse Rate Pulse Rate [Pulse Oximeter] 97 Respiratory Rate 16 Blood Pressure [Left Arm] 118/61 Pulse Oximetry 91 Oxygen Delivery Method Room Air Assessment and Plan Assessment and plan (1) Closed intertrochanteric fracture of right femur: Problem details: Postop day 3 s/p right hip intertrochanteric fracture fixation with IM nail (DOS: 02/06/25, Laury) Status: Acute Assessment and Plan: - Regarding constipation, Fidel will continue to drink prune juice and take senna and/or MiraLax PRN. Again, we discussed a side of narcotics is constipation. If she continues to decrease her oxycodone dosage/frequency, then this will continue to improve. - May shower. Dressing is waterproof. - Mepilex dressings to be removed in 7-10 days. Upon removal, the nursing staff at the SNF will perform a wound check and notify our Orthopedic clinic with any concerns. For wound care, I recommend they cleanse the wound with soap and water using a clean wash cloth. Pat dry. Do not submerge wound under water until a fully healed scar has formed. Do not apply lotion, moisturizer, Neosporin or triple antibiotic ointment to the wounds. Surgical glue will flake off with time. - Weight bear as tolerated with walker for assistance. - Prescribed analgesics as needed. Patient is content with current narcotic medications. Minimize narcotic pain medication use; wean off and discontinue as soon as possible. - For DVT prophylaxis: Xarelto 10 mg daily x 35 days. Also recommend ankle pumps when sedentary and frequent ambulation. - Tentative discharge plan is to be discharged to [facility] later today. - Follow-up with Dr. Schaeffer at 6 weeks postoperative or sooner if concerns arise. - Notify Orthopedics with any questions or concerns. [phone].
[2025-02-09 08:12] VITALS: BP 104/68; PULSE 77; RESP 16; O2SAT 90
[2025-02-09] MEDS: SENNOSIDES 1 TAB TABLET 2 TAB PO (08:20)
[2025-02-09] MEDS: FOLIC ACID 1 MG TABLET PO (08:21)
[2025-02-09] MEDS: RIVAROXABAN 10 MG TABLET PO (08:21)
[2025-02-09] MEDS: THIAMINE 100 MG TABLET 250 MG PO (08:21)
[2025-02-09] MEDS: MULTIVITAMIN/MINERALS 1 TABLET 1 TAB PO (08:21)
[2025-02-09] MEDS: SODIUM CHLORIDE 0.9 % (FLUSH) 10 ML SYRINGE 5 ML IVF (08:22)
--- NOTE | 2025-02-09 11:15 | PC.NURSE ---
The patient discharged via non emergent EMS to [facility] rehab facility. Report was given to a nurse there regarding the patient. All belongings were sent with the patient. Pain control regimen is Tylenol and oxycodone. Emily POTTER BSN
--- NOTE | 2025-02-09 15:23 | PC.SOCIAL ---
Discharge planning: Pt discharged to [facility] this morning for short-term rehab. Discharge orders were secure emailed to Neema at [facility]. The pre-admission screening was also completed and secure emailed to Neema at [facility]. [id number]. Pt transported via non-emergent EMS around 10:15am, as was noted yesterday in this worker's progress note. social group worker discussed The Important Message from Medicare form with the pt and she had no concerns about discharging nor did she want to appeal her discharge. Pt was thankful for the assistance. Social work to follow-up as needed.
--- NOTE | 2025-02-09 15:26 | PM.DS1 ---
DS: Providers Provider Date of admission: 02/05/25 01:23 Primary care physician: Not a Local Provider Admitting Clinician: Ericka Taylor MD Consults: 02/05/25 02:29 Consult to Physical Therapy [CONS] Routine Comment: Reason(s) for PT Consult:: Evaluate and Treat Any Restrictions?:: Non Wt Bearing Consult to Manager Front Office [CONS] Routine Comment: Reason for Consult:: Abuse, Neglect Potential 02/05/25 02:33 Consult to Physician [CONS] Routine Comment: Consulting Provider: Orthopedics, [facility] Has provider been notified: Yes 02/06/25 11:18 Consult to Occupational Therapy [CONS] Routine Comment: Reason(s) for OT Consult:: Evaluate and Treat Any Restrictions?:: See Comment Comment: evaluate and treat Consult to Physical Therapy [CONS] Routine Comment: Reason(s) for PT Consult:: Evaluate and Treat Any Restrictions?:: Wt Bearing as Tolerated Attending Physician on discharge: Ericka Taylor MD DS: Summary Hospital Course Hospital Course: This is a 75-year-old female with history of alcohol use, COPD, and nicotine dependence who tripped over her dog and fell, developing right hip pain. She was found to have a right intratrochanteric hip fracture. Due to elevated medical blood alcohol level, surgery was delayed until she had sobered was able to consent. She was on a CIWA protocol and showed no evidence of withdrawal. She has done well postoperatively. Time Spent with Patient Time attestation: Total time spent providing and/or coordinating discharge services: Exam Const: Vital Signs, click to edit/add: Vital Signs - 24 hr 02/08/25 19:00 02/08/25 21:39 02/08/25 22:30 Temperature 97.7 F Pulse Rate 96 Pulse Rate [Pulse Oximeter] 110 H 110 H Respiratory Rate 18 18 Blood Pressure [Le ft Arm] 120/100 H Pulse Oximetry 93 Oxygen Delivery Me thod Room Air 02/08/25 23:00 02/08/25 23:00 02/09/25 03:00 Temperature 98.5 F 99 F Pulse Rate Pulse Rate [Pulse Oximeter] 96 97 Respiratory Rate 18 18 16 Blood Pressure [Le ft Arm] 116/57 L 118/61 Pulse Oximetry 90 90 91 Oxygen Delivery Me thod Room Air Room Air Room Air 02/09/25 07:00 02/09/25 07:00 02/09/25 08:12 Temperature Pulse Rate 113 H Pulse Rate [Pulse Oximeter] 77 Respiratory Rate 16 Blood Pressure [Le ft Arm] 104/68 Pulse Oximetry 93 90 Oxygen Delivery Me thod Room Air Room Air Discharge Plan Discharge Disposition: Xfer [facility] Date of Admission: 02/05/25 01:23 Attending Provider on Discharge: Iliana Del Valle Consulting Providers: Joselito Schaeffer Primary Care Provider: Provider,Not a Local Condition: Stable Anticipated Discharge Date/Time: 02/09/25 07:27 Discharge Medications: New Xarelto 10 mg Tablet 10 mg PO DAILY Qty: 32 0RF Rx Instructions: continue daily, last dose is 03/13/25 thiamine mononitrate (vit B1) [Vitamin B-1 (mononitrate)] 100 mg Tablet 250 mg PO DAILY Qty: 30 0RF oxycodone 5 mg Tablet 2.5 - 5 mg PO Q2H PRN (Reason: Pain) Qty: 30 0RF Rx Instructions: 2.5 mg for pain 3-6, 5mg for 7-10 level pain folic acid 1 mg Tablet 1 mg PO DAILY Qty: 30 0RF acetaminophen [Tylenol Arthritis Pain] 650 mg tablet extended release 1,300 mg PO Q12H Qty: 120 0RF polyethylene glycol 3350 17 gram Powder In Packet 17 g PO DAILY PRN (Reason: Constipation) Qty: 30 0RF Continued Stiolto Respimat 2.5-2.5 mcg/actuation mist 2 inh inhalation DAILY loratadine [Claritin] 10 mg tablet 10 mg PO DAILY apple cider vinegar PO DAILY Rx Instructions: USES LIQUID MIXED WITH FRUIT JUICE collagen peptide powder Rx Instructions: scoop a day cholecalciferol (vitamin D3) [Vitamin D3] 25 mcg (1,000 unit) tablet 1,000 unit PO DAILY desonide 0.05 % cream 1 applic topical BID PRN Discharge Orders: Discharge Order (Routine); Ordered 02/09/25 Ordered By: Iliana Del Valle Consulting provider completed their portion of the discharge: Yes Activity Level: Activity as Tolerated, Weight Bearing as Tolerated and Use Walker Activity Detail: - May shower. Dressing is waterproof. - Mepilex dressings to be removed in 7 days. Upon removal, the nursing staff at the [facility] will perform a wound check and notify our Orthopedic clinic with any concerns. For wound care, I recommend they cleanse the wound with soap and water using a clean wash cloth. Pat dry. Do not submerge wound under water until a fully healed scar has formed. Do not apply lotion, moisturizer, Neosporin or triple antibiotic ointment to the wounds. Surgical glue will flake off with time. - Weight bear as tolerated with walker for assistance. - Prescribed analgesics as needed. Patient is content with current narcotic medications. Minimize narcotic pain medication use; wean off and discontinue as soon as possible. - For DVT prophylaxis: Xarelto 10 mg daily x 35 days total. Also recommend ankle pumps when sedentary and frequent ambulation. - Follow-up with Dr. Schaeffer at 6 weeks postoperative or sooner if concerns arise. - Notify Orthopedics with any questions or concerns. Discharge Diet: Regular Follow Up Appointments: Joselito Schaeffer MD [Staff Physician, Orthopedics] - 03/24/25 9:00 am Referral Note: Follow-up at [facility]. Provider,Not a Local [Primary Care Provider, Family Practice] Forms: Patient Belongings, [facility] Info Instructions Admit to: SNF Discharge Potential: Good Length of Stay: <30 days Can use facility standing orders?: Yes Code Status: Full Code TEDs: N/A Rehab Potential: Good Therapy: Physical Therapy and Occupational Therapy Therapy Orders: Gait Training Oxygen: No Urinary Catheter: No Orders are good >30 days: Yes
--- NOTE | 2025-02-10 10:21 | PC.SOCIAL ---
Discharge planning/late entry: On 02/09/2025 this outreach and education social worker left a message with [facility] in regard to the [facility] report that was filed on the pt by hospital staff on the evening of 02/05/2025. Report number #[id number]. field ironworker wanted to update [facility] that the pt discharged to [facility] for short-term rehab in case they had follow-up that they wanted to complete with her. Social work to follow-up as needed.
== END 2025-02-09 10:45 | DRG 482 ==
LOC: ED 02-05 01:15 → MEDSURG 02-05 01:22
PROVIDERS: Family Medicine; Orthopaedic Surgery Sports Medicine; Admitting Provider Internal Medicine; Emergency Provider Family Medicine; Visit Provider Internal Medicine
PROC: (CPT 27245; principal; 2025-02-06 08:15)
DX: S72.141A Displaced intertrochanteric fracture of right femur, initial encounter for closed fracture (principal); G89.18 Other acute postprocedural pain; F10.129 Alcohol abuse with intoxication, unspecified; Y90.8 Blood alcohol level of 240 mg/100 ml or more; J44.9 Chronic obstructive pulmonary disease, unspecified; W01.0XXA Fall on same level from slipping, tripping and stumbling without subsequent striking against object, initial encounter; Y92.039 Unspecified place in apartment as the place of occurrence of the external cause; M81.0 Age-related osteoporosis without current pathological fracture; F17.210 Nicotine dependence, cigarettes, uncomplicated; L40.9 Psoriasis, unspecified
CPT/HCPCS: 01210; 36415; 51701; 51702; 51798; 64450; 71045; 73502; 73552; 76000; 76942; 80048; 82077; 85025; 86850; 86900; 86901; 93005; 94761; 97110; 97116; 97162; 97165; 97530; 97535; 99140; 99284; 99285; A9153; A9270; C1713; J0690; J1100; J1171; J2250; J2371; J2405; J2704; J3490; J7030; J7120

== ENCOUNTER 2025-02-09 10:19 | Outpatient (CLI) | payer MEDICARE, SELFPAY ==
--- NOTE | 2025-02-10 11:12 | PC.SOCIAL ---
Discharge planning: skid worker spoke to [facility] this morning and they will follow-up on the [facility] report on the pt and were thankful for the update. Social work to follow-up as needed.
== END 2025-02-09 10:20 | disposition home or self-care (01) ==
LOC: AMB 02-10 10:42
PROVIDERS: Visit Provider Family Medicine
DX: Z98.890 Other specified postprocedural states (principal); J44.9 Chronic obstructive pulmonary disease, unspecified; Z99.3 Dependence on wheelchair
CPT/HCPCS: A0425; A0428